=== PATIENT | female | born 1995 | race American Indian/Alaskan Native ===

== ENCOUNTER 2017-10-01 08:54 | Emergency (ER) | payer MEDICAID ==
[2017-10-01 10:11] LABS: Bacteria,Urine 2+ /HPF (Negative); Mucus,Urine FEW /HPF
[2017-10-01 10:13] LABS: Bilirubin,Urine Negative (Negative); Blood,Urine Negative (Negative); Ketones,Urine Negative (Negative); Protein,Urine <15 mg/dL mg/dL (Negative)
[2017-10-01 10:14] LABS: Leukocyte Esterase,Urine Negative (Negative); Nitrite,Urine Negative (Negative); Urobilinogen,Urine < 2.0 mg/dL (<2.0)
[2017-10-01 10:57] VITALS: BP 121/69
--- NOTE | 2017-10-01 11:20 | Emergency Department Report ---
ED Abdominal Pain HPI - General Chief Complaint: Abdominal Pain Stated Complaint: ABD PAIN Time Seen by Provider: 10/01/17 11:15 Source: patient Mode of arrival: Ambulatory Limitations: No Limitations - History of Present Illness Initial Comments: Apparently at triage the patient just complained of crampy abdominal pain for a day. However she confided that she had a retained tampon that she could be removed since Thursday. She denies any fever or chills. She denies any vaginal bleeding or substantial discharge. She is no longer complaining of abdominal pain. MD Complaint: abdominal pain -: hour(s) Location: suprapubic Radiation: none Severity: mild Severity scale (0 -10): 2 Quality: cramping Consistency: now resolved Improves With: nothing Context: other Associated Symptoms: denies other symptoms - Related Data Previous Rx's Medication Instructions Recorded Last Taken Type oxyCODONE /ACETAMINOPHEN [Percocet 1 tab PO Q6HR PRN #40 tablet 06/09/16 Unknown Rx 5/325] Ferrous Sulfate [Feosol 325 MG tab] 325 mg PO BID #60 tablet 06/11/16 Unknown Rx Ibuprofen [Motrin 800 MG tab] 800 mg PO Q6H PRN #30 tablet 06/11/16 Unknown Rx metroNIDAZOLE [Metronidazole] 500 mg PO TID #14 tablet 10/01/17 Unknown Rx Allergies Allergy/AdvReac Type Severity Reaction Status Date / Time No Known Allergies Allergy Unverified 09/23/14 13:18 ED Review of Systems ROS: Stated complaint: ABD PAIN Other details as noted in HPI Constitutional: denies: chills, fever Eyes: denies: eye pain, eye discharge, vision change ENT: denies: ear pain, throat pain Respiratory: denies: cough, shortness of breath, wheezing Cardiovascular: denies: chest pain, palpitations Endocrine: no symptoms reported Gastrointestinal: abdominal pain. denies: nausea, diarrhea Genitourinary: as per HPI. denies: urgency, dysuria, discharge Musculoskeletal: denies: back pain, joint swelling, arthralgia Skin: denies: rash, lesions Neurological: denies: headache, weakness, paresthesias Psychiatric: denies: anxiety, depression Hematological/Lymphatic: denies: easy bleeding, easy bruising ED Past Medical Hx - Past Medical History Hx Hypertension: No Hx Congestive Heart Failure: No Hx Diabetes: No Hx Deep Vein Thrombosis: No Hx Renal Disease: No Hx Sickle Cell Disease: No Hx Seizures: No Hx Asthma: No Hx COPD: No - Surgical History Additional Surgical History: c sect - Social History Smoking Status: Never Smoker Substance Use Type: None - Medications Home Medications: Home Medications Medication Instructions Recorded Confirmed Last Taken Type oxyCODONE /ACETAMINOPHEN [Percocet 1 tab PO Q6HR PRN #40 tablet 06/09/16 Unknown Rx 5/325] Ferrous Sulfate [Feosol 325 MG tab] 325 mg PO BID #60 tablet 06/11/16 Unknown Rx Ibuprofen [Motrin 800 MG tab] 800 mg PO Q6H PRN #30 tablet 06/11/16 Unknown Rx metroNIDAZOLE [Metronidazole] 500 mg PO TID #14 tablet 10/01/17 Unknown Rx ED Physical Exam - General Limitations: No Limitations General appearance: alert, in no apparent distress - Head Head exam: Present: atraumatic, normocephalic - Eye Eye exam: Present: normal appearance, PERRL, EOMI. Absent: scleral icterus - ENT ENT exam: Present: mucous membranes moist - Neck Neck exam: Present: normal inspection - Respiratory Respiratory exam: Present: normal lung sounds bilaterally. Absent: respiratory distress - Cardiovascular Cardiovascular Exam: Present: regular rate, normal rhythm. Absent: systolic murmur, diastolic murmur, rubs, gallop - GI/Abdominal GI/Abdominal exam: Present: soft, normal bowel sounds. Absent: distended, tenderness, guarding, rebound, rigid - External exam: Present: normal external exam Speculum exam: Present: other (retained foreign body (tampon and (was removed with a towel forceps without difficulty.) Bi-manual exam: Present: normal bi-manual exam - Extremities Exam Extremities exam: Present: normal inspection - Back Exam Back exam: Present: normal inspection - Neurological Exam Neurological exam: Present: alert, oriented X3, CN II-XII intact. Absent: motor sensory deficit - Psychiatric Psychiatric exam: Present: normal affect, normal mood - Skin Skin exam: Present: warm, dry, intact, normal color. Absent: rash ED Course Vital Signs 10/01/17 10/01/17 09:28 10:54 Temperature 98.3 F 98.3 F Pulse Rate 99 H 93 H Respiratory 16 10 L Rate Blood Pressure 135/78 Blood Pressure 121/69 [Right] O2 Sat by Pulse 98 100 Oximetry ED Medical Decision Making - Lab Data Laboratory Results - last 24 hr 10/01/17 10/01/17 09:39 09:41 HCG, Qual Negative Urine Color Yellow Urine Turbidity Clear Urine pH 8.0 H Ur Specific [place] 1.010 Urine Protein <15 mg/dl Urine Glucose (UA) Negative Urine Ketones Negative Urine Blood Negative Urine Nitrite Negative Ur Reducing Substances Not Reportable Urine Bilirubin Negative Urine Ictotest Not Reportable Urine Urobilinogen < 2.0 Ur Leukocyte Esterase Negative Urine WBC (Auto) 2.0 Urine RBC (Auto) 1.0 U Epithel Cells (Auto) 1.0 Urine Bacteria (Auto) 2+ Urine Mucus Few Laboratory Results - last 24 hr 10/01/17 10/01/17 09:39 09:41 HCG, Qual Negative Urine Color Yellow Urine Turbidity Clear Urine pH 8.0 H Ur Specific [place] 1.010 Urine Protein <15 mg/dl Urine Glucose (UA) Negative Urine Ketones Negative Urine Blood Negative Urine Nitrite Negative Ur Reducing Substances Not Reportable Urine Bilirubin Negative Urine Ictotest Not Reportable Urine Urobilinogen < 2.0 Ur Leukocyte Esterase Negative Urine WBC (Auto) 2.0 Urine RBC (Auto) 1.0 U Epithel Cells (Auto) 1.0 Urine Bacteria (Auto) 2+ Urine Mucus Few Critical care attestation.: If time is entered above; I have spent that time in minutes in the direct care of this critically ill patient, excluding procedure time. ED Disposition Clinical Impression: Vaginal foreign body Qualifiers: Encounter type: initial encounter Qualified Code(s): T19.2XXA - Foreign body in vulva and vagina, initial encounter Disposition: TO HOME OR SELFCARE Is pt being admited?: No Does the pt Need Aspirin: No Condition: Stable Instructions: Abdominal Pain (ED), Vaginitis (ED) Additional Instructions: Follow-up with your methods analyst. Return if any acute change or problem. Rx as directed. Prescriptions: metroNIDAZOLE [Metronidazole] 500 mg PO TID #14 tablet Referrals: PRIMARY CARE, [Primary Care Provider] - 3-5 Days Time of Disposition: 12:33
[2017-10-01 11:39] LABS: Basophils % (Auto) 0.3 % (0.0-1.8); Eosinophils % (Auto) 0.9 % (0.0-4.3); Hematocrit 37.6 % (30.3-42.9); Hemoglobin 12.4 gm/dl (10.1-14.3); Mean Corpuscular HGB Conc 33 % (30-34); Mean Corpuscular Hemoglobin 30 pg (28-32); Mean Corpuscular Volume 90 fl (79-97); Platelet Count 252 K/mm3 (140-440); Red Blood Count 4.16 M/mm3 (3.65-5.03); Red Cell Distribution Width 13.7 % (13.2-15.2); White Blood Count 10.9 K/mm3 (4.5-11.0)
[2017-10-01 12:05] LABS: Anion Gap 20 mmol/L; BUN/Creatinine Ratio 14; Blood Urea Nitrogen 7 mg/dL (7-17); Calcium 8.8 mg/dL (8.4-10.2); Carbon Dioxide 24 mmol/L (22-30); Chloride 100.7 mmol/L (98-107); Glucose 85 mg/dL (65-100); Potassium 3.8 mmol/L (3.6-5.0); Sodium 141 mmol/L (137-145)
== END 2017-10-01 12:41 | disposition home or self-care (01) ==
LOC: ED 08:54
DX: T19.2XXA Foreign body in vulva and vagina, initial encounter (principal); W45.8XXA Other foreign body or object entering through skin, initial encounter; Y93.89 Activity, other specified; Y99.8 Other external cause status; Y92.89 Other specified places as the place of occurrence of the external cause
CPT/HCPCS: 36415; 80048; 81001; 84703; 85025; 99284

== ENCOUNTER 2018-02-20 09:00 | Emergency (ER) | payer MEDICAID ==
[2018-02-20 09:10] VITALS: BP 126/69
--- NOTE | 2018-02-20 09:45 | XRay Report ---
LEFT FINGER RADIOGRAPHS INDICATION: Left index finger injury, slammed in car door. COMPARISON: None similar. FINDINGS: An AP view of the left hand with oblique and lateral projections of the index finger demonstrate intact bones and joints. Index finger volar laceration/injury about the middle phalanx and soft tissue swelling about the PIP joint possible. No radiopaque foreign body. CONCLUSION: No acute bony abnormality with left index finger soft tissue injury suspected, as described. Please correlate. Thank you for the opportunity to participate in this patient's care.
[2018-02-20] MEDS ORDERED: XYLOCAINE 2% INFILTRATI ONE (10:42)
[2018-02-20] MEDS ORDERED: MOTRIN PO ONE (10:42)
--- NOTE | 2018-02-20 10:42 | Emergency Department Report ---
- General Chief Complaint: Extremity Injury, Upper Stated Complaint: LEFT INDEX FINGER INJURY Time Seen by Provider: 02/20/18 10:15 Source: patient Mode of arrival: Ambulatory Limitations: No Limitations - History of Present Illness Initial Comments: 22-year-old female presents with laceration to left index finger between the DIP and PIP. States that last night she accidentally slammed a car door on her own finger. Tetanus vaccine up-to-date as of 2015. No other injury sustained. Visible horizontal laceration on the volar aspect of finger. Onset/Timin -: hour(s) Extremity Location: Left: Hand (index finger) Place: outdoors Patient Tetanus UTD: Yes Context: accidental Associated Symptoms: pain - Related Data Previous Rx's Medication Instructions Recorded Last Taken Type oxyCODONE /ACETAMINOPHEN [Percocet 1 tab PO Q6HR PRN #40 tablet 06/09/16 Unknown Rx 5/325] Ferrous Sulfate [Feosol 325 MG tab] 325 mg PO BID #60 tablet 06/11/16 Unknown Rx Ibuprofen [Motrin 800 MG tab] 800 mg PO Q6H PRN #30 tablet 06/11/16 Unknown Rx metroNIDAZOLE [Metronidazole] 500 mg PO TID #14 tablet 10/01/17 Unknown Rx Cephalexin [Keflex] 500 mg PO BID #14 capsule 02/20/18 Unknown Rx Ibuprofen [Motrin] 800 mg PO Q8HR PRN #20 tablet 02/20/18 Unknown Rx Allergies Allergy/AdvReac Type Severity Reaction Status Date / Time No Known Allergies Allergy Unverified 09/23/14 13:18 ED Review of Systems ROS: Stated complaint: LEFT INDEX FINGER INJURY Other details as noted in HPI Constitutional: denies: chills, fever Eyes: denies: eye pain, eye discharge, vision change ENT: denies: ear pain, throat pain Respiratory: denies: cough, shortness of breath, wheezing Cardiovascular: denies: chest pain, palpitations Endocrine: no symptoms reported Gastrointestinal: denies: abdominal pain, nausea, diarrhea Genitourinary: denies: urgency, dysuria, discharge Musculoskeletal: as per HPI. denies: back pain, joint swelling, arthralgia Skin: as per HPI. denies: rash, lesions Neurological: denies: headache, weakness, paresthesias Psychiatric: denies: anxiety, depression Hematological/Lymphatic: denies: easy bleeding, easy bruising ED Past Medical Hx - Past Medical History Previous Medical History?: No Hx Hypertension: No Hx Congestive Heart Failure: No Hx Diabetes: No Hx Deep Vein Thrombosis: No Hx Renal Disease: No Hx Sickle Cell Disease: No Hx Seizures: No Hx Asthma: No Hx COPD: No - Surgical History Past Surgical History?: Yes Additional Surgical History: c sect - Social History Smoking Status: Current Every Day Smoker Substance Use Type: Alcohol, Marijuana - Medications Home Medications: Home Medications Medication Instructions Recorded Confirmed Last Taken Type oxyCODONE /ACETAMINOPHEN [Percocet 1 tab PO Q6HR PRN #40 tablet 06/09/16 Unknown Rx 5/325] Ferrous Sulfate [Feosol 325 MG tab] 325 mg PO BID #60 tablet 06/11/16 Unknown Rx Ibuprofen [Motrin 800 MG tab] 800 mg PO Q6H PRN #30 tablet 06/11/16 Unknown Rx metroNIDAZOLE [Metronidazole] 500 mg PO TID #14 tablet 10/01/17 Unknown Rx Cephalexin [Keflex] 500 mg PO BID #14 capsule 02/20/18 Unknown Rx Ibuprofen [Motrin] 800 mg PO Q8HR PRN #20 tablet 02/20/18 Unknown Rx ED Physical Exam - General Limitations: No Limitations General appearance: alert, in no apparent distress - Head Head exam: Present: atraumatic, normocephalic - Eye Eye exam: Present: normal appearance, PERRL, EOMI - ENT ENT exam: Present: mucous membranes moist - Neck Neck exam: Present: normal inspection - Respiratory Respiratory exam: Present: normal lung sounds bilaterally. Absent: respiratory distress - Cardiovascular Cardiovascular Exam: Present: regular rate, normal rhythm. Absent: systolic murmur, diastolic murmur, rubs, gallop - GI/Abdominal GI/Abdominal exam: Present: soft, normal bowel sounds - Extremities Exam Extremities exam: Present: normal inspection - Expanded Upper Extremity Exam Left Forearm Wrist exam: Present: normal inspection, full ROM Hand L/R Front: 1 - Positive: laceration (horizontal laceration here) Neuro motor exam: Present: wrist extension intact, thumb opposition intact, thumb IP flexion intact, thumb adduction intact, fingers 2-5 abduction intact, other Neurosensory exam: Present: radial nerve intact, ulnar nerve intact, median nerve intact Vascular: Present: normal capillary refill, radial pulse, brachial pulse, ulnar pulse - Back Exam Back exam: Present: normal inspection - Neurological Exam Neurological exam: Present: alert, oriented X3 - Psychiatric Psychiatric exam: Present: normal affect, normal mood - Skin Skin exam: Present: warm, dry, intact, normal color. Absent: rash ED Course Vital Signs 02/20/18 09:07 Temperature 98.1 F Pulse Rate 74 Respiratory 18 Rate Blood Pressure 126/69 O2 Sat by Pulse 100 Oximetry - Laceration /Wound Repair Left Distal Volar Finger Wound Location: upper extremity (left distal index finger) Wound's Depth, Shape: linear Irrigated w/ Saline (ccs): 500 Wound Debrided: minimal Wound Repaired With: sutures Suture Size/Type: 4:0, nylon Number of Sutures: 3 Progress: Local anesthesia achieved using lidocaine. 3 nylon sutures placed. Good wound closure achieved. Wound irrigated with saline and iodine before closure. Covered with antibiotic ointment and Band-Aid and finger splint afterward. ED Medical Decision Making - Medical Decision Making A/P: Left index finger Laceration 1-sutures to be removed in 7 days. Range of motion left index finger intact. X -ray shows no fracture 2-tetanus updated 2015 3-Motrin when necessary, short course keflex 4- pt advised to return to the ED for any fevers chills pus drainage erythema at site of laceration Critical care attestation.: If time is entered above; I have spent that time in minutes in the direct care of this critically ill patient, excluding procedure time. ED Disposition Clinical Impression: Laceration of left index finger Qualifiers: Encounter type: initial encounter Damage to nail status: without damage Foreign body presence: without foreign body Qualified Code(s): S61.211A - Laceration without foreign body of left index finger without damage to nail, initial encounter Disposition: TO HOME OR SELFCARE Is pt being admited?: No Does the pt Need Aspirin: No Condition: Stable Instructions: Finger Laceration (ED), Suture Care (ED) Additional Instructions: Return in 7 days for suture removal Prescriptions: Cephalexin [Keflex] 500 mg PO BID #14 capsule Ibuprofen [Motrin] 800 mg PO Q8HR PRN #20 tablet PRN Reason: Pain Referrals: [facility] [Provider Group] - 3-5 Days Forms: Work/School Release Form(ED) Time of Disposition: 11:09
[2018-02-20] MEDS ORDERED: TRIPLE ANTIBIOTIC TP ONE (10:43)
== END 2018-02-20 11:19 | disposition home or self-care (01) ==
LOC: ED 09:00
DX: S61.211A Laceration without foreign body of left index finger without damage to nail, initial encounter (principal); F17.200 Nicotine dependence, unspecified, uncomplicated; F12.10 Cannabis abuse, uncomplicated; W23.0XXA Caught, crushed, jammed, or pinched between moving objects, initial encounter; Y93.89 Activity, other specified; Y99.8 Other external cause status; Y92.89 Other specified places as the place of occurrence of the external cause
CPT/HCPCS: A6250

== ENCOUNTER 2018-03-29 21:50 | Emergency (ER) | payer MEDICAID ==
[2018-03-29 22:45] VITALS: BP 132/75
[2018-03-29 23:15] LABS: Basophils % (Auto) 0.4 % (0.0-1.8); Eosinophils # (Auto) 0.2 K/mm3 (0.0-0.4); Eosinophils % (Auto) 2.2 % (0.0-4.3); Hemoglobin 12.2 gm/dl (10.1-14.3); Lymphocytes # (Auto) 2.2 K/mm3 (1.2-5.4); Lymphocytes % (Auto) 31.4 % (13.4-35.0); Mean Corpuscular HGB Conc 33 % (30-34); Mean Corpuscular Hemoglobin 30 pg (28-32); Mean Corpuscular Volume 91 fl (79-97); Monocytes # (Auto) 0.4 K/mm3 (0.0-0.8); Monocytes % (Auto) 5.3 % (0.0-7.3); Platelet Count 237 K/mm3 (140-440); Red Blood Count 4.08 M/mm3 (3.65-5.03); Red Cell Distribution Width 12.8 % (13.2-15.2)
[2018-03-29 23:40] LABS: Alanine Aminotransferase 8 units/L (7-56); Albumin 4.3 g/dL (3.9-5); BUN/Creatinine Ratio 25; Blood Urea Nitrogen 15 mg/dL (7-17); Hemolysis Index 0
[2018-03-30 03:21] LABS: Bacteria,Urine 1+ /HPF (Negative); Bilirubin,Urine NEG (Negative); Blood,Urine NEG (Negative); Color,Urine Yellow (Yellow); Mucus,Urine FEW /HPF; Protein,Urine <15 mg/dL mg/dL (Negative)
== END 2018-03-29 23:00 | disposition left against medical advice (07) ==
LOC: ED 21:50
DX: F41.9 Anxiety disorder, unspecified (principal); Z53.21 Procedure and treatment not carried out due to patient leaving prior to being seen by health care provider
CPT/HCPCS: 36415; 80053; 81001; 84703; 85025; 93005; 93010

== ENCOUNTER 2018-06-27 19:22 | Inpatient (IN) | payer MEDICAID ==
[2018-06-27] MEDS ORDERED: NACL 0.9% 1000 ML 1,000 ML IV ONE (20:11)
[2018-06-27] MEDS ORDERED: ZOFRAN IV ONE (20:46)
[2018-06-27] MEDS ORDERED: TYLENOL PO ONE (20:46)
[2018-06-27 20:49] LABS: Basophils % (Auto) 0.5 % (0.0-1.8); Eosinophils # (Auto) 0.1 K/mm3 (0.0-0.4); Eosinophils % (Auto) 1.2 % (0.0-4.3); Hematocrit 33.3 % (30.3-42.9); Hemoglobin 11.4 gm/dl (10.1-14.3); Lymphocytes # (Auto) 1.6 K/mm3 (1.2-5.4); Lymphocytes % (Auto) 23.1 % (13.4-35.0); Mean Corpuscular HGB Conc 34 % (30-34); Mean Corpuscular Hemoglobin 31 pg (28-32); Mean Corpuscular Volume 90 fl (79-97); Monocytes # (Auto) 0.5 K/mm3 (0.0-0.8); Monocytes % (Auto) 7.2 % (0.0-7.3); Platelet Count 218 K/mm3 (140-440); Red Blood Count 3.71 M/mm3 (3.65-5.03); Red Cell Distribution Width 13.6 % (13.2-15.2)
[2018-06-27 21:00] LABS: Blood Urea Nitrogen 9 mg/dL (7-17); Hemolysis Index 42
--- NOTE | 2018-06-27 21:01 | Emergency Department Report ---
ED Seizure HPI - General Chief Complaint: Seizure Stated Complaint: SEIZURE Time Seen by Provider: 06/27/18 20:38 Source: patient, EMS Mode of arrival: Stretcher Limitations: No Limitations - History of Present Illness Initial Comments: 22-year-old female with a past medical history of anxiety and currently 13 weeks presents to the hospital with seizure 3 prior to arrival. Patient states she developed shortness of breath and feeling like her chest was caving in. Her cousin states that she started hyperventilating and her body stiffened. She began shaking for about 1 minute. She had 3 seizures back to back. She reports that patient was confused afterwards and uponEMS arrival. Patient now complains of a moderate headache since seizure activity. Positive nausea. Patient had ultrasound week confirming 13 week IUP. She complains of sternal chest pain with palpation, inspiration, and movement. Patient reports first episode of a seizure 3 years ago. She states she was diagnosed with anxiety and treated with Zoloft at that time. Although she has had recurrent anxiety attack she has never had any further seizures. She is not currently on any seizure or anxiety medication. Patient states she has never seen a neurologist, had a EEG, or had full seizure workup and evaluation. - Related Data Previous Rx's Medication Instructions Recorded Last Taken Type oxyCODONE /ACETAMINOPHEN [Percocet 1 tab PO Q6HR PRN #40 tablet 06/09/16 Unknown Rx 5/325] Ferrous Sulfate [Feosol 325 MG tab] 325 mg PO BID #60 tablet 06/11/16 Unknown Rx Ibuprofen [Motrin 800 MG tab] 800 mg PO Q6H PRN #30 tablet 06/11/16 Unknown Rx metroNIDAZOLE [Metronidazole] 500 mg PO TID #14 tablet 10/01/17 Unknown Rx Cephalexin [Keflex] 500 mg PO BID #14 capsule 02/20/18 Unknown Rx Ibuprofen [Motrin] 800 mg PO Q8HR PRN #20 tablet 02/20/18 Unknown Rx Allergies Allergy/AdvReac Type Severity Reaction Status Date / Time No Known Allergies Allergy Unverified 09/23/14 13:18 ED Review of Systems ROS: Stated complaint: SEIZURE Other details as noted in HPI Comment: All other systems reviewed and negative ED Past Medical Hx - Past Medical History Hx Hypertension: No Hx Congestive Heart Failure: No Hx Diabetes: No Hx Deep Vein Thrombosis: No Hx Renal Disease: No Hx Sickle Cell Disease: No Hx Seizures: No Hx Psychiatric Treatment: Yes (Anxiety) Hx Asthma: No Hx COPD: No - Surgical History Past Surgical History?: No Additional Surgical History: c sect - Social History Smoking Status: Never Smoker Substance Use Type: None - Medications Home Medications: Home Medications Medication Instructions Recorded Confirmed Last Taken Type oxyCODONE /ACETAMINOPHEN [Percocet 1 tab PO Q6HR PRN #40 tablet 06/09/16 Unknown Rx 5/325] Ferrous Sulfate [Feosol 325 MG tab] 325 mg PO BID #60 tablet 06/11/16 Unknown Rx Ibuprofen [Motrin 800 MG tab] 800 mg PO Q6H PRN #30 tablet 06/11/16 Unknown Rx metroNIDAZOLE [Metronidazole] 500 mg PO TID #14 tablet 10/01/17 Unknown Rx Cephalexin [Keflex] 500 mg PO BID #14 capsule 02/20/18 Unknown Rx Ibuprofen [Motrin] 800 mg PO Q8HR PRN #20 tablet 02/20/18 Unknown Rx ED Physical Exam - General Limitations: No Limitations - Other Other exam information: General: No limitations, patient is alert in no acute distress Head exam: Atraumatic, normocephalic Eyes exam: Normal appearance, pupils equal reactive to light, extraocular movements intact ENT: Moist mucous membrane, normal oropharynx Neck exam: Normal inspection, full range of motion, no meningismus nontender Respiratory exam: Clear to auscultation bilateral, no wheezes, rales, crackles Cardiovascular: Normal rate and rhythm, normal heart sounds. Reproducible sternal chest wall tenderness to palpation Abdomen: Soft, nondistended, and nontender, with normal bowel sounds, no rebound, or guarding Extremity: Full range of motion normal inspection no deformity, no calf tenderness or edema Back: Normal Inspection, full range of motion, no tenderness Neurologic: Alert, oriented x3, cranial nerves intact, no motor or sensory deficit Psychiatric: normal affect, normal mood Skin: Warm, dry, intact ED Course Vital Signs 06/27/18 06/27/18 06/27/18 19:51 19:58 20:00 Temperature 98.2 F Pulse Rate 74 73 Respiratory 16 14 Rate Blood Pressure 105/51 109/58 O2 Sat by Pulse 100 100 Oximetry 06/27/18 20:15 Temperature Pulse Rate 74 Respiratory 18 Rate Blood Pressure 110/67 O2 Sat by Pulse 99 Oximetry - Consultations Consultation #1: 06/27/18 22:57 case d/w Dr Dr Conley with Neuro recommendations: Lamictal 25mg qd admission mri, eeg, neuro consult Consultation #2: 06/27/18 23:16 [facility] (tom ob) aware, consult ordered ED Medical Decision Making - Lab Data Result diagrams: 06/27/18 20:31 06/27/18 20:31 Lab Results 06/27/18 06/27/18 Range/Units 20:31 20:31 WBC 7.0 (4.5-11.0) K/mm3 RBC 3.71 (3.65-5.03) M/mm3 Hgb 11.4 (10.1-14.3) gm/dl Hct 33.3 (30.3-42.9) % MCV 90 (79-97) fl MCH 31 (28-32) pg MCHC 34 (30-34) % RDW 13.6 (13.2-15.2) % Plt Count 218 (140-440) K/mm3 Lymph % (Auto) 23.1 (13.4-35.0) % [place] % (Auto) 7.2 (0.0-7.3) % Eos % (Auto) 1.2 (0.0-4.3) % Baso % (Auto) 0.5 (0.0-1.8) % Lymph # 1.6 (1.2-5.4) K/mm3 [place] # 0.5 (0.0-0.8) K/mm3 Eos # 0.1 (0.0-0.4) K/mm3 Baso # 0.0 (0.0-0.1) K/mm3 Seg Neutrophils % 68.0 (40.0-70.0) % Seg Neutrophils # 4.8 (1.8-7.7) K/mm3 Sodium 136 L (137-145) mmol/L Potassium 3.7 (3.6-5.0) mmol/L Chloride 100.1 (98-107) mmol/L Carbon Dioxide 17 L (22-30) mmol/L Anion Gap 23 mmol/L BUN 9 (7-17) mg/dL Creatinine 0.4 L (0.7-1.2) mg/dL Estimated GFR > 60 ml/min BUN/Creatinine Ratio 23 % Glucose 70 (65-100) mg/dL Calcium 9.0 (8.4-10.2) mg/dL Magnesium 1.60 L (1.7-2.3) mg/dL Total Bilirubin 0.30 (0.1-1.2) mg/dL AST 26 (5-40) units/L ALT 34 (7-56) units/L Alkaline Phosphatase 78 (35-129) units/L Total Protein 6.9 (6.3-8.2) g/dL Albumin 3.8 L (3.9-5) g/dL Albumin/Globulin Ratio 1.2 % - EKG Data -: EKG Interpreted by Al EKG shows normal: sinus rhythm, axis (qrs 29), QRS complexes (qrsd 92), ST-T waves (no stemi, pvc) Rate: normal (75) - EKG Data When compared to previous EKG there are: previous EKG unavailable - Radiology Data Radiology results: report reviewed FINAL REPORT EXAM: CT HEAD/BRAIN WO CON HISTORY: Seizure COMPARISON: None available. TECHNIQUE: Axial images obtained skull base through vertex. FINDINGS: No acute intracranial hemorrhage, midline shift or pathologic extra axial fluid collection. Ventricles and cisterns are normal in size and configuration for the patient's age. Carranza-white differentiation preserved. Calvarium grossly intact. Visualized ocular globes are grossly unremarkable. Visualized para-nasal sinuses and mastoid air cells are clear. IMPRESSION: No grossly acute intracranial abnormality. FINAL REPORT EXAM: XR CHEST 1V AP HISTORY: sob, , mid cp COMPARISON: None available. FINDINGS: Frontal view(s) of the chest obtained. Heart upper limits of normal in size. No gross consolidation or effusion. No pneumothorax. IMPRESSION: No grossly acute findings. - Medical Decision Making sz no sz in ed cth head neg case d/w with neuro admission, lamictal, MRI, possible eeg, neuro consult cp costochondritis ekg, cxr neg normal pulse ox tylenol given hypomag IV mag 13 weeks no active issue Premire ob dr rader informed and consulted uds collection pending hospitalist to admit. - Differential Diagnosis seizures, pseudoseizures, electrolyte abnormality Critical Care Time: No Critical care attestation.: If time is entered above; I have spent that time in minutes in the direct care of this critically ill patient, excluding procedure time. ED Disposition Clinical Impression: 13 weeks gestation of , Seizure Disposition: [id number] OP ADMIT IP TO THIS HOSP Is pt being admited?: Yes Condition: Stable Time of Disposition: 23:11 (Dr Jensen/hosp)
--- NOTE | 2018-06-27 21:08 | Cat Scan Report ---
FINAL REPORT EXAM: CT HEAD/BRAIN WO CON HISTORY: Seizure COMPARISON: None available. TECHNIQUE: Axial images obtained skull base through vertex. FINDINGS: No acute intracranial hemorrhage, midline shift or pathologic extra axial fluid collection. Ventricles and cisterns are normal in size and configuration for the patient's age. Carranza-white differentiation preserved. Calvarium grossly intact. Visualized ocular globes are grossly unremarkable. Visualized para-nasal sinuses and mastoid air cells are clear. IMPRESSION: No grossly acute intracranial abnormality.
[2018-06-27 21:43] LABS: Alanine Aminotransferase 34 units/L (7-56); Albumin 3.8 g/dL (3.9-5); BUN/Creatinine Ratio 23
--- NOTE | 2018-06-27 22:37 | XRay Report ---
FINAL REPORT EXAM: XR CHEST 1V AP HISTORY: sob, , mid cp COMPARISON: None available. FINDINGS: Frontal view(s) of the chest obtained. Heart upper limits of normal in size. No gross consolidation or effusion. No pneumothorax. IMPRESSION: No grossly acute findings.
[2018-06-27] MEDS ORDERED: LaMICtal PO ONE (22:56)
[2018-06-27] MEDS ORDERED: MAGNESIUM SULFATE 2GM/50ML 2 GM/50 ML BAG IV ONE (22:56)
[2018-06-28 00:15] LABS: Bacteria,Urine 2+ /HPF (Negative); Bilirubin,Urine NEG (Negative); Blood,Urine NEG (Negative); Color,Urine Red (Yellow); Mucus,Urine FEW /HPF; Protein,Urine <15 mg/dL mg/dL (Negative)
[2018-06-28 00:21] LABS: Amphetamine Screen,Urine PRESUMPTIVE NEGATIVE; Benzodiazepines Screen,Urine PRESUMPTIVE NEGATIVE; Cannabinoid Screen,Urine PRESUMPTIVE NEGATIVE; Cocaine Screen,Urine PRESUMPTIVE NEGATIVE; Methadone Screen,Urine PRESUMPTIVE NEGATIVE; Opiate Screen,Urine PRESUMPTIVE NEGATIVE
[2018-06-28] MEDS ORDERED: ATIVAN IV PRN (00:47)
[2018-06-28] MEDS ORDERED: TYLENOL PO PRN (00:49)
[2018-06-28] MEDS ORDERED: ZOFRAN IV PRN (00:49)
--- NOTE | 2018-06-28 04:36 | History and Physical Report ---
CHIEF COMPLAINT: Seizure attack. HISTORY OF PRESENT ILLNESS: The patient is a 22-year-old female who 13-week and noted to have reaction at home described as seizure attack by the patient's family. The patient's cousin stated that the patient was hyperventilated with the body stiffened and started shaking for about 1 minute. The patient was noted to have back to back 3 episodes of such reactions and was confused afterwards an EMS was called. The patient was brought to the Emergency Room. The patient said she had what she described as attack of migraine headache prior to the seizure attack and there was also history of nausea and also there was history of chest discomfort. The patient states she had such first seizure attacking in life about 3 years ago and was diagnosed with history of anxiety disorder, which was treated with Zoloft, sometime in the past. The patient is not on any anti-seizure medications and states she has started her clinic attendance. She denied history of being evaluated by any neurologist for seizure disorder or had any workup for seizure in the past. PAST MEDICAL HISTORY: Pertinent for seizure disorder. Also, the patient has past history of anxiety disorder and migraine headache. PAST SURGICAL HISTORY: Pertinent for section. FAMILY HISTORY: Noncontributory. SOCIAL HISTORY: The patient does not smoke, does not drink alcohol and does not use illicit drugs. MEDICATIONS: The patient is on baclofen 5/325 mg 1 by mouth every 6 hours, ferrous sulfate 325 mg by mouth twice daily, ibuprofen 800 mg by mouth every 6 hours as needed for pain and metronidazole 500 mg by mouth 3 times daily as well as Keflex 500 mg by mouth twice daily. ALLERGIES: There are no known drug allergies. REVIEW OF SYSTEMS: CONSTITUTIONAL: There is no fever, no chills, no diaphoresis. HEENT: There is headache but no sore throat. CARDIOVASCULAR SYSTEM: There is chest discomfort with no orthopnea. RESPIRATORY SYSTEM: There is no shortness of breath or cough. GASTROINTESTINAL SYSTEM: There is nausea, but no vomiting, no abdominal pain, diarrhea or constipation. NEUROLOGICAL SYSTEM: Seizure attack noted. Change in mental status noted. MUSCULOSKELETAL SYSTEM: There is no joint pain or swelling. DERMATOLOGICAL SYSTEM: There is no skin rash or itching. GENITOURINARY SYSTEM: There is no dysuria, hematuria, or flank pain. Rest of system review is normal. PHYSICAL EXAMINATION: GENERAL: At the time of exam, the patient was found to be alert, oriented x 3 and not in acute distress. VITAL SIGNS: Shows temperature of 98.2 degrees Fahrenheit, pulse of 74, respiration 16, blood pressure 105/51, O2 sat of 100% on room air. HEENT: Showed pupils to be equal, round, and reactive to light and accommodating. Extraocular muscles are intact. NECK: Supple with no JVD or carotid bruit. CARDIOVASCULAR SYSTEM: Show normal first and second heart sounds with no gallops or murmurs. RESPIRATORY SYSTEM: Show good air entry on both sides of the lungs with no abnormal breath sounds. GASTROINTESTINAL SYSTEM: Show abdomen to be enlarged. NEUROLOGICAL SYSTEM: Show no focal deficit. MUSCULOSKELETAL SYSTEM: Show no joint swelling or tenderness. DERMATOLOGICAL SYSTEM: Show no skin rash. GENITOURINARY SYSTEM: Show no costovertebral angle tenderness. PERTINENT LABORATORY AND IMAGING STUDIES: The patient had CT of the head without contrast done that shows no acute intracranial abnormality, also the patient had chest x-ray done that shows no acute finding. The patient's lab results show normal CBC with chemistry showing slightly decreased sodium level of 136 with normal potassium, normal chloride and low CO2 level of 17 with low magnesium level of 1.60. The patient's albumin level was slightly low with a value of 3.8. The patient's urinalysis was unremarkable. Toxicology screen came back unremarkable. DIAGNOSES: 1. Seizure attack in . 2. Low magnesium. PLAN: 1. The patient will be admitted to medical floor on remote telemetry. 2. The patient will continue Obstetrical consult with Dr. Gerhard Tillman ordered by the Emergency Room physician. 3. The patient will have Neurology consult with Dr. Gracy Zhou this morning to decide whether to carry on the request for MRI advised by the teleneurologist and also the neurologist will determine the best anti-seizure medication. The patient to be in agreement with the club concierge about the safe medication in . 4. The patient will be on IV Zofran 4 mg every 8 hours as needed for nausea and vomiting and will be on IV lorazepam 2 mg every 2 hours as needed for seizure disorder. The patient will also be on Tylenol 650 mg by mouth every 4 hours for fever and headache. JOB# [id number] OCN/NTS
--- NOTE | 2018-06-28 13:02 | Consultation ---
History of Present Illness Consult date: 06/28/18 Requesting physician: MYA KEN Reason for Consult: seizure History of present illness: 22 year old female, 13 weeks , presented to ER with spell of shortness of breath followed by syncope and shaking with eyes rolled back. Witnessed by her cousin who provides history. There were 2 more spells like this afterwards. EMS was called, she was brought to ER and has had no further spells. She is lethargic this a.m. but answers questions appropriately. She had a seizure 3 years ago but was not evaluated for this nor placed on medication. She also carries a diagnosis of anxiety disorder. She has been on Zoloft in the past, but states that it did not help. She also complains of migraine headache constant for the past [address] is without abnormality. Past History Past Medical History: migraines Past Surgical History: Medications and Allergies Allergies Allergy/AdvReac Type Severity Reaction Status Date / Time No Known Allergies Allergy Unverified 09/23/14 13:18 Home Medications Medication Instructions Recorded Confirmed Last Taken Type No Known Home Medications [No 06/28/18 06/28/18 Unknown History Reported Home Medications] Active Meds: Active Medications Acetaminophen (Tylenol) 650 mg PO Q4H PRN PRN Reason: Fever >101 Lamotrigine (Lamictal) 25 mg PO BID ISIDORO Lorazepam (Ativan) 2 mg IV Q2H PRN PRN Reason: Seizures Ondansetron HCl (Zofran) 4 mg IV Q8H PRN PRN Reason: Nausea And Vomiting Last Admin: 06/28/18 09:02 Dose: 4 mg Review of Systems Constitutional: chronic headaches, no fever, no chills Cardiovascular: chest pain, lightheadedness, shortness of breath, no orthopnea, no palpitations, no rapid/irregular heart beat, no edema, no syncope Respiratory: shortness of breath, no cough Gastrointestinal: nausea, no abdominal pain, no vomiting, no diarrhea, no constipation Genitourinary Female: no dysuria, no urinary frequency, no urgency Musculoskeletal: no arm numbness/tingling, no leg numbness/tingling Integumentary: no rash Neurological: seizures, syncope, headaches, migraines, no parathesias, no numbness, no tingling, no ataxia, no vertigo, no aphasia Psychiatric: anxiety Physical Examination - Vital Signs Vital Signs: Vital Signs Pulse Ox 100 06/27/18 19:51 - Physical Exam Narrative exam: Resting in bed. Arousable HEENT - no inflammation or lesions. neck supple. Chest - clear to auscultation. Heart - reg. rate. nl S-1, S-2. Abdomen - soft, nontender. Extremities - no CCE Neurological - speech fluent, low voice vol. not cooperating fully with the exam. 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 Hearing intact, V-1 thru V-3 intact bilaterally Motor - symmetric Reflexes - trace throughout Sensory - intact touch and pin. Cerebellar - intact. Results - Laboratory Findings CBC and BMP: 06/27/18 20:31 06/27/18 20:31 Abnormal Lab Findings: Abnormal Labs 06/27/18 20:31 Sodium 136 L Carbon Dioxide 17 L Creatinine 0.4 L Magnesium 1.60 L Albumin 3.8 L Assessment and Plan 22 year old female, 13 weeks with hyperventilation followed by seizures. History of anxiety disorder. On no meds at present. She was given lamotrigine, which is felt to be safe in . This drug may also help with her anxiety disorder. Plan - EEG and MRI brain ordered. Continue Lamotrigine 25 mg BID. OB-Foot Cutter consult to advise us as to pain management for her migraine. What meds are acceptable in .
--- NOTE | 2018-06-28 17:09 | Progress Note ---
Assessment and Plan Acute onset seizure - placed on vimpat, as needed ativan - neurology following - CT head unremarkable headache, likely migraine - cont vimpat and as needed tylenol - will wait for obg/information clerk brokerage for further recommendation for pain meds Hypomagnesemia, repleted, monitor level 13th week of - consulted obg/information clerk brokerage DVT Px, SCD Subjective Date of service: 06/28/18 Interval history: Patient seen and examined c/o headache poorly responding to tylenol Objective - Constitutional Vitals: Vital Signs - 12hr 06/28/18 06/28/18 06/28/18 07:45 10:00 11:08 Temperature 98.3 F 98.1 F Pulse Rate 73 69 Respiratory 16 18 16 Rate Blood Pressure 95/52 103/55 O2 Sat by Pulse 97 99 Oximetry 06/28/18 06/28/18 12:00 16:02 Temperature 98.0 F Pulse Rate 71 69 Respiratory 16 Rate Blood Pressure 103/56 O2 Sat by Pulse 100 Oximetry General appearance: Present: no acute distress, well-nourished - EENT Eyes: PERRL, EOM intact ENT: hearing intact, clear oral mucosa Ears: bilateral: normal - Neck Neck: supple, normal ROM - Respiratory Respiratory effort: normal Respiratory: bilateral: CTA - Cardiovascular Rhythm: regular Heart Sounds: Present: S1 & S2. Absent: gallop, rub Extremities: pulses intact, No edema, normal color, Full ROM - Gastrointestinal General gastrointestinal: Present: soft, non-tender, non-distended, normal bowel sounds - Genitourinary Female genitourinary: deferred - Integumentary Integumentary: clear, warm, dry - Musculoskeletal Musculoskeletal: 1, strength equal bilaterally - Neurologic Neurologic: moves all extremities - Psychiatric Psychiatric: memory intact, appropriate mood/affect, intact judgment & insight - Labs CBC & Chem 7: 06/27/18 20:31 06/27/18 20:31 Labs: Abnormal lab results 06/27/18 Range/Units 20:31 Sodium 136 L (137-145) mmol/L Carbon Dioxide 17 L (22-30) mmol/L Creatinine 0.4 L (0.7-1.2) mg/dL Magnesium 1.60 L (1.7-2.3) mg/dL Albumin 3.8 L (3.9-5) g/dL
[2018-06-28] MEDS: LaMICtal PO SCH (21:04)
[2018-06-29] MEDS: LaMICtal PO SCH ×2 (11:01→21:57)
--- NOTE | 2018-06-29 13:26 | Consultation ---
History of Present Illness Consult date: 06/29/18 Reason for consult: other (seizure activity in ) History of present illness: 22y/o @ 13 weeks estimated gestational age presents to the ED with the complaint of seizure activity. The patient reports having a seizure 3-4 years ago and was given Zoloft. She has a history of anxiety. The patient reports having a persistent migraine headache that has not been resolved with over-the- counter meds. She denies any history of any seizure activity with her migraine headaches in the past. She also reports intermittent nausea likely secondary to the . The patient denies any vaginal bleeding but is experiencing occasional lower uterine cramping. She also complains of episodes of shortness of breath and wheezing. Past History Past Medical History: seizure Social history: single - Obstetrical History : 3 Para: 1 Hx # Term Pregnancies: 1 Number of Pregnancies: 0 Spontaneous Abortions: 1 Induced : 0 Number of Living Children: 1 Medications and Allergies Allergies Allergy/AdvReac Type Severity Reaction Status Date / Time No Known Allergies Allergy Unverified 09/23/14 13:18 Home Medications Medication Instructions Recorded Confirmed Last Taken Type No Known Home Medications [No 06/28/18 06/28/18 Unknown History Reported Home Medications] Active Meds: Active Medications Acetaminophen (Tylenol) 650 mg PO Q4H PRN PRN Reason: Fever >101 Last Admin: 06/29/18 11:03 Dose: 650 mg Lamotrigine (Lamictal) 25 mg PO BID ISIDORO Last Admin: 06/29/18 11:01 Dose: 25 mg Lorazepam (Ativan) 2 mg IV Q2H PRN PRN Reason: Seizures Ondansetron HCl (Zofran) 4 mg IV Q8H PRN PRN Reason: Nausea And Vomiting Last Admin: 06/28/18 09:02 Dose: 4 mg Review of Systems All systems: negative Ears, nose, mouth and throat: headache Respiratory: shortness of breath Gastrointestinal: nausea Genitourinary: pelvic pain, no vaginal bleeding - Vital Signs Vital signs: Vital Signs Pulse Ox 100 06/27/18 19:51 Temp Pulse Resp BP Pulse Ox 98.0 F 98 H 18 98/62 99 06/29/18 12:12 06/29/18 12:12 06/29/18 12:12 06/29/18 12:12 06/29/18 12:12 Results Result Diagrams: 06/27/18 20:31 06/27/18 20:31 All other labs normal. Assessment and Plan - Patient Problems (1) Seizure disorder during Current Visit: Yes Status: Acute Plan to address problem: We will obtain an obstetrical ultrasound would recommend the use of fioricet with codeine for management of headaches Keepra is a consideration for control of seizure activity patient feels albuterol inhaler would be helpful for SOB please contact me with any questions [phone] (2) Migraine headache Current Visit: Yes Status: Acute
[2018-06-29] MEDS: FIORICET PO PRN (14:54)
--- NOTE | 2018-06-29 16:24 | Progress Note ---
Assessment and Plan Acute onset seizure - placed on as needed ativan - neurology following - CT head unremarkable - EEG and MRI brain ordered. - Continue Lamotrigine 25 mg BID for seizure - safe in headache, likely migraine - started on fiorecet as needed Hypomagnesemia, repleted, monitor level 13th week of - consulted obg/outside energy sales representatives - ordered pelvic US for assessment DVT Px, SCD Subjective Date of service: 06/29/18 Interval history: Patient seen and examined c/o headache poorly responding to tylenol Objective - Exam Narrative Exam: General appearance: Present: no acute distress, well-nourished - EENT Eyes: PERRL, EOM intact ENT: hearing intact, clear oral mucosa Ears: bilateral: normal - Neck Neck: supple, normal ROM - Respiratory Respiratory effort: normal Respiratory: bilateral: CTA - Cardiovascular Rhythm: regular Heart Sounds: Present: S1 & S2. Absent: gallop, rub Extremities: pulses intact, No edema, normal color, Full ROM - Gastrointestinal General gastrointestinal: Present: soft, non-tender, non-distended, normal bowel sounds - Genitourinary Female genitourinary: deferred - Integumentary Integumentary: clear, warm, dry - Musculoskeletal Musculoskeletal: 1, strength equal bilaterally - Neurologic Neurologic: moves all extremities - Psychiatric Psychiatric: memory intact, appropriate mood/affect, intact judgment & insight - Constitutional Vitals: Vital Signs - 12hr 06/29/18 06/29/18 06/29/18 06:35 08:55 12:09 Temperature 98.6 F 98.2 F Pulse Rate 63 65 67 Respiratory 18 18 Rate Blood Pressure 101/46 Blood Pressure 95/48 [Right] O2 Sat by Pulse 97 98 Oximetry 06/29/18 12:12 Temperature 98.0 F Pulse Rate 98 H Respiratory 18 Rate Blood Pressure 98/62 Blood Pressure [Right] O2 Sat by Pulse 99 Oximetry - Labs CBC & Chem 7: 06/27/18 20:31 06/27/18 20:31
[2018-06-29 16:41] LABS: HCG Qualitative,Urine Positive (Negative)
--- NOTE | 2018-06-29 19:30 | Progress Note ---
Assessment and Plan 22 year old female, 13 weeks with hyperventilation followed by seizures. History of anxiety disorder. On no meds at present. She was given lamotrigine, which is felt to be safe in . This drug may also help with her anxiety disorder. Fioricet added for migraine control. Plan - EEG and MRI brain ordered. Continue Lamotrigine 25 mg BID. Ultrasound today to check fetus. Subjective Date of service: 06/29/18 Principal diagnosis: seizures Interval history: Feeling much better today. She has been started on Fioricet for migraine and is obtaining relief. No further seizures. Objective - Exam Narrative Exam: Awake and alert HEENT - no inflammation or lesions. neck supple. Chest - clear to auscultation. Heart - reg. rate. nl S-1, S-2. Abdomen - soft, nontender. Extremities - no CCE Neurological - speech fluent, low voice vol. not cooperating fully with the exam. coordinating producer - EOMs full, face symmetric, tongue midline. Hearing intact, V-1 thru V-3 intact bilaterally Motor - symmetric Reflexes - trace throughout Sensory - intact touch and pin. Cerebellar - intact. - Vital Sign Vital Signs - 12hr 06/29/18 06/29/18 06/29/18 08:55 12:09 12:12 Temperature 98.2 F 98.0 F Pulse Rate 65 67 98 H Respiratory 18 18 Rate Blood Pressure 101/46 98/62 O2 Sat by Pulse 98 99 Oximetry 06/29/18 17:17 Temperature 98.6 F Pulse Rate 64 Respiratory 18 Rate Blood Pressure 100/56 O2 Sat by Pulse 100 Oximetry - Laboratory Findings CBC and BMP: 06/27/18 20:31 06/27/18 20:31 Abnormal Lab Findings: Abnormal Labs 06/27/18 06/29/18 20:31 16:16 Sodium 136 L Carbon Dioxide 17 L Creatinine 0.4 L Magnesium 1.60 L Albumin 3.8 L Urine HCG, Qual Positive A
--- NOTE | 2018-06-29 23:35 | Ultrasound Report ---
FINAL REPORT PROCEDURE: Limited obstetrical ultrasound. TECHNIQUE: Real-time limited sonographic examination was performed for evaluation of size, position, heartbeat, fluid volume for each fetus with image documentation (1 or more fetuses). CPT 63398 HISTORY: , seizures. COMPARISON: No prior studies are available for comparison. FINDINGS: There is a single viable fetus in breech presentation. Cardiac activity is documented at 165 beats per minute. The cervix measures 5.2 centimeters in length. It is too early to evaluate anatomy. The amniotic fluid volume appears normal. The placenta is anterior in location with no signs of placenta previa. The measured parameters are as follows: Biparietal diameter 2.6 centimeters, head circumference 9.1 centimeters, abdominal circumference 7.9 centimeters, femur length 1.4 centimeters. The calculated menstrual age is 14 weeks 2 days. The estimated date of confinement is 12/26/2018. IMPRESSION: Single viable fetus in breech presentation with a menstrual age of 14 weeks 2 days.
[2018-06-30] MEDS: FIORICET PO PRN (08:19)
[2018-06-30] MEDS: LaMICtal PO SCH (10:20)
--- NOTE | 2018-06-30 11:49 | Progress Note ---
Assessment and Plan A: IUP at 13 wks Seizure disorder on Lamictal 25 mg PO BID, Neurology following Migraines, now on Fioricet Dyspnea Anxiety P: Continue Lamictal per Neurology recs Attempt Albuterol treatment to aid in dyspnea, may need Pulmonology consult outpatient Initiate vitamins daily Discharge per Neurology and Hospitalist recs Pt should follow up at [facility] next week once discharged Subjective - Subjective Date of service: 06/30/18 Principal diagnosis: seizures, dyspnea, IUP at 13 wks Interval history: Pt denies seizures overnight. She also denies vaginal bleeding. She does continue to report dyspnea but mentions that this is a chronic issue that she has been dealing with since high school. She has not been evaluated previously. She has established care at [facility] x 1 visit. Patient reports: new complaints Objective - Vital Signs Vital Signs: Vital Signs - 12hr 06/30/18 06/30/18 06/30/18 00:45 01:43 04:26 Temperature 98.6 F Pulse Rate 64 57 L 60 Respiratory 18 Rate Blood Pressure 90/43 93/43 Blood Pressure 96/49 [Right] O2 Sat by Pulse 96 96 96 Oximetry 06/30/18 06/30/18 06/30/18 05:34 06:00 09:03 Temperature 97.6 F 98.3 F Pulse Rate 68 83 73 Respiratory 20 18 Rate Blood Pressure 98/45 Blood Pressure 93/43 [Right] O2 Sat by Pulse 96 99 Oximetry 06/30/18 06/30/18 09:06 11:07 Temperature 98.3 F Pulse Rate 56 L 75 Respiratory 18 Rate Blood Pressure Blood Pressure 98/45 [Right] O2 Sat by Pulse 100 Oximetry - Exam Breasts: deferred Cardiovascular: Regular rate Lungs: Clear to auscultation Abdomen: Present: soft. Absent: tenderness Uterus: Present: normal Extremities: normal - Labs Labs: Abnormal Labs 06/27/18 06/29/18 20:31 16:16 Sodium 136 L Carbon Dioxide 17 L Creatinine 0.4 L Magnesium 1.60 L Albumin 3.8 L Urine HCG, Qual Positive A Laboratory Results - last 24 hr 06/29/18 16:16 Urine HCG, Qual Positive A - Results US- obstetric: report reviewed
--- NOTE | 2018-06-30 11:57 | Discharge Summary ---
Providers - Providers Date of Admission: 06/28/18 00:42 Date of discharge: 06/30/18 Attending physician: ALMA GARCIA 06/27/18 23:02 Consult to Physician [CONS] Urgent Comment: Dr. Dewey spoke with Dr. Echeverria @ [phone] Consulting Provider: MAXIMILIAN DONATO Physician Instructions: Reason For Exam: sz, 13 weeks gestation 06/28/18 06:00 Consult to Physician [CONS] Routine Comment: Consulting Provider: MANUELA DUKES Physician Instructions: Reason For Exam: SEIZURE DISORDER AND Primary care physician: REAGENT TENDER Hospitalization Condition: Stable Hospital course: Discharge diagnosis and management: Acute onset seizure - placed on as needed ativan - neurology following - CT head unremarkable - EEG brain ordered and was normal - Continue Lamotrigine 25 mg BID for seizure - safe in headache, likely migraine - started on fiorecet as needed and neurontin 100mg TID Hypomagnesemia, repleted, monitor level 13th week of - consulted obg/gynecological assistant - ordered pelvic US for assessment which showed normal viable fetus H/o asthma - nebs as needed DVT Px, SCD Physical exam: - Exam Narrative Exam: General appearance: Present: no acute distress, well-nourished - EENT Eyes: PERRL, EOM intact ENT: hearing intact, clear oral mucosa Ears: bilateral: normal - Neck Neck: supple, normal ROM - Respiratory Respiratory effort: normal Respiratory: bilateral: CTA - Cardiovascular Rhythm: regular Heart Sounds: Present: S1 & S2. Absent: gallop, rub Extremities: pulses intact, No edema, normal color, Full ROM - Gastrointestinal General gastrointestinal: Present: soft, non-tender, non-distended, normal bowel sounds - Genitourinary Female genitourinary: deferred - Integumentary Integumentary: clear, warm, dry - Musculoskeletal Musculoskeletal: 1, strength equal bilaterally - Neurologic Neurologic: moves all extremities - Psychiatric Psychiatric: memory intact, appropriate mood/affect, intact judgment & insight Disposition: DC-01 TO HOME OR SELFCARE Time spent for discharge: 34 minutes Core Measure Documentation - Palliative Care Palliative Care/ Comfort Measures: Not Applicable - Core Measures Any of the following diagnoses?: none Exam - Constitutional Vitals: Temp Pulse Resp BP Pulse Ox 98.3 F 75 18 98/45 100 06/30/18 09:06 06/30/18 11:07 06/30/18 09:06 06/30/18 09:06 06/30/18 09:06 Plan Activity: advance as tolerated Weight Bearing Status: Non-Weight Bearing Diet: regular Follow up with: PRIMARY CARE,MD [Primary Care Provider] - 7 Days Forms: Discharge Signature Page Prescriptions: ALBUTEROL Inhaler (OR & NICU) [Proair] 2 puff IH QID PRN 30 Days inhalation PRN Reason: Shortness Of Breath Butalb/Acetamin/Caff 50-325-40 [Fioricet] 2 tab PO Q4H PRN #10 tablet PRN Reason: Headache Gabapentin [Neurontin] 100 mg PO Q8HR #90 capsule lamoTRIgine [LaMICtal] 25 mg PO BID #60 tablet
[2018-06-30] MEDS ORDERED: PRENATAL VITAMIN PO ONE (14:00)
[2018-06-30] MEDS ORDERED: PROVENTIL IH SCH (14:00)
--- NOTE | 2018-06-30 15:19 | Progress Note ---
Assessment and Plan 22 year old female, 13 weeks with hyperventilation followed by seizures. History of anxiety disorder. She was given lamotrigine, which is felt to be safe in . This drug may also help with her anxiety disorder. Fioricet added for migraine control, but still having headache pain. Discussed the use of Neurontin with Dr. Echeverria and she agrees that it can be used safely. EEG was without abnormality Plan - Neurontin 100 mg TID Continue Lamotrigine 25 mg BID. Follow-up with a neurologist in one month Subjective Principal diagnosis: seizures, dyspnea, IUP at 13 wks Interval history: 22 year old female with migraine headache, 13 weeks , presented with seizure She has been started on Fioricet for migraine and is obtaining some relief. No further seizures. Today she has noted recurrence of headache, not as bad as before. She gets some relief from Fioricet. Objective - Exam Narrative Exam: Awake and alert HEENT - no inflammation or lesions. neck supple. Chest - clear to auscultation. Heart - reg. rate. nl S-1, S-2. Abdomen - soft, nontender. Extremities - no CCE Neurological - speech fluent, low voice vol. not cooperating fully with the exam. 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 Hearing intact, V-1 thru V-3 intact bilaterally Motor - symmetric Reflexes - trace throughout Sensory - intact touch and pin. Cerebellar - intact. - Vital Sign Vital Signs - 12hr 06/30/18 06/30/18 06/30/18 04:26 05:34 06:00 Temperature 97.6 F Pulse Rate 60 68 83 Respiratory 20 Rate Blood Pressure 93/43 Blood Pressure 93/43 [Right] O2 Sat by Pulse 96 96 Oximetry 06/30/18 06/30/18 06/30/18 09:03 09:06 11:07 Temperature 98.3 F 98.3 F Pulse Rate 73 56 L 75 Respiratory 18 18 Rate Blood Pressure 98/45 Blood Pressure 98/45 [Right] O2 Sat by Pulse 99 100 Oximetry 06/30/18 12:11 Temperature 98.2 F Pulse Rate 68 Respiratory 18 Rate Blood Pressure 91/49 Blood Pressure [Right] O2 Sat by Pulse 98 Oximetry - Laboratory Findings CBC and BMP: 06/27/18 20:31 06/27/18 20:31 Abnormal Lab Findings: Abnormal Labs 06/27/18 06/29/18 20:31 16:16 Sodium 136 L Carbon Dioxide 17 L Creatinine 0.4 L Magnesium 1.60 L Albumin 3.8 L Urine HCG, Qual Positive A
[2018-06-30 15:59] VITALS: BP 95/45
[2018-06-30] MEDS ORDERED: NEURONTIN PO SCH (16:00)
== END 2018-06-30 20:00 | disposition home or self-care (01) | DRG 781 ==
LOC: ED 19:22 → 4A 06-28 00:42
PROVIDERS: ADMIT Internal Medicine; ATTEND Internal Medicine
DX: O99.351 Diseases of the nervous system complicating pregnancy, first trimester (principal); O99.341 Other mental disorders complicating pregnancy, first trimester; Z3A.13 13 weeks gestation of pregnancy; E83.42 Hypomagnesemia; F41.9 Anxiety disorder, unspecified; G43.909 Migraine, unspecified, not intractable, without status migrainosus; R06.4 Hyperventilation; O99.511 Diseases of the respiratory system complicating pregnancy, first trimester; O99.281 Endocrine, nutritional and metabolic diseases complicating pregnancy, first trimester; G40.909 Epilepsy, unspecified, not intractable, without status epilepticus; J45.909 Unspecified asthma, uncomplicated
CPT/HCPCS: 36415; 70450; 71045; 76805; 80053; 80307; 81001; 81025; 83735; 85025; 93005; 93010; 95819; 96361; 96365; 96375; J2405; J3475; J7030

== ENCOUNTER 2018-12-20 09:00 | Outpatient (CLI) | payer MEDICAID, SELFPAY ==
--- NOTE | 2018-12-20 07:46 | History and Physical Report ---
History of Present Illness Date of examination: 12/20/18 Date of admission: 12/20/18 Chief complaint: scheduled repeat csec History of present illness: 23 yo at 39 weeks here for repeat csec. Hx of fibroids. Chronic anemia. GBS neg. Unremarkable hospital course Past History Past Medical History: no pertinent history Past Surgical History: section Family/Genetic History: none Social history: single, smoking, alcohol abuse, prescription drug abuse - Obstetrical History Expected Date of Delivery: 12/26/18 Actual Gestation: 39 Week(s) 1 Day(s) : 3 Para: 1 Hx # Term Pregnancies: 1 Number of Pregnancies: 0 Spontaneous Abortions: 0 Induced : 1 Number of Living Children: 1 Medications and Allergies Allergies Allergy/AdvReac Type Severity Reaction Status Date / Time No Known Allergies Allergy Unverified 09/23/14 13:18 Home Medications Medication Instructions Recorded Confirmed Last Taken Type ALBUTEROL Inhaler (OR & NICU) 2 puff IH QID PRN 30 Days 06/30/18 Unknown Rx [Proair] inhalation Butalb/Acetamin/Caff 50-325-40 2 tab PO Q4H PRN #10 tablet 06/30/18 Unknown Rx [Fioricet] Gabapentin [Neurontin] 100 mg PO Q8HR #90 capsule 06/30/18 Unknown Rx lamoTRIgine [LaMICtal] 25 mg PO BID #60 tablet 06/30/18 Unknown Rx Review of Systems All systems: negative - Physical Exam Breasts: Positive: normal Cardiovascular: Regular rate, Normal S1 Lungs: Positive: Clear to auscultation, Normal air movement Abdomen: Positive: normal appearance, soft, normal bowel sounds. Negative: distention, tenderness, guarding Genitourinary (Female): Positive: normal external genitalia, normal perenium Vulva: both: normal Vagina: Positive: normal moisture Uterus: Positive: normal size, normal contour Anus/Rectum: Positive: normal perianal skin Extremities: Positive: normal Deep Tendon Reflex Grade: Normal +2 - Obstetrical FHR: category 1 Results All other labs normal. Assessment and Plan A/PIUP 39 weeks scheduled repeat csec consents signed r/b/a which include bleeding infection damage to pelvic and non pelvic organs, anethesia, blood clots, hysterectomy and and patient agrees with proceeding to repeat csec
[~2018-12-20 09:00] MED LIST: LACTATED RINGERS 1,000 ML IV SCH
[2018-12-20] MEDS ORDERED: PEPCID IV NR (10:00)
[2018-12-20] MEDS ORDERED: PITOCin/NS 20 UNIT/1000ML DRIP 20 UNITS/1,000 ML BAG IV SCH (10:00)
[2018-12-20] MEDS ORDERED: BICITRA PO NR (10:00)
[2018-12-20] MEDS ORDERED: REGLAN IV NR (10:00)
--- NOTE | 2018-12-20 10:12 | Anesthesia Consultation ---
Anesthesia Consult and Med Hx - Airway Anesthetic Teeth Evaluation: Good ROM Head & Neck: Adequate Mental/Hyoid Distance: Adequate Mallampati Class: Class II Intubation Access Assessment: Probably Good - Pulmonary Exam CTA: Yes - Cardiac Exam Cardiac Exam: RRR - Pre-Operative Health Status ASA Pre-Surgery Classification: ASA2 Proposed Anesthetic Plan: Spinal - Pulmonary Hx Smoking: Yes Hx Asthma: No Hx Respiratory Symptoms: No SOB: No COPD: No Home Oxygen Therapy: No Hx Pneumonia: No Hx Sleep Apnea: No - Cardiovascular System Hx Hypertension: No Hx Coronary Artery Disease: No Hx Heart Attack/AMI: No Hx Angina: No Hx Percutaneous Transluminal Coronary Angioplasty (PTCA): No Hx Cardia Arrhythmia: No Hx Pacemaker: No Hx Internal Defibrillator: No Hx Valvular Heart Disease: No Hx Heart Murmur: No Hx Peripheral Vascular Disease: No - Central Nervous System Hx Neuromuscular Disorder: No Hx Seizures: Yes CVA: No Hx Back Pain: No Hx Psychiatric Problems: No - Gastrointestinal Hx Ulcer: No Hx Gastroesophageal Reflux Disease: No - Endocrine Hx Renal Disease: No Hx End Stage Renal Disease: No Hx Cirrhosis: No Hx Liver Disease: No Hx Insulin Dependent Diabetes: No Hx Non-Insulin Dependent Diabetes: No Hx Thyroid Disease: No Hx Hypothyroidism: No Hx Hyperthyroidism: No - Hematic Hx Anemia: No Hx Sickle Cell Disease: No - Other Systems Hx Alcohol Use: No Hx Substance Use: No Hx Cancer: No Hx Obesity: No
--- NOTE | 2018-12-20 10:13 | Anesthesia Day of Surgery ---
Anesthesia Day of Surgery - Day of Surgery Patient Examined: Yes Patient H&P Reviewed: Yes Patient is NPO: Yes Beta Blockers: No Cardiac Clearance: No Pulmonary Clearance: No Zaki's Test: N/A
[2018-12-20] MEDS ORDERED: ZOFRAN IV PRN (10:30)
[2018-12-20] MEDS ORDERED: NARCAN 0.4 MG/1 ML IV PRN (10:30)
[2018-12-20] MEDS ORDERED: PHENERGAN PR PRN (10:30)
[2018-12-20] MEDS ORDERED: SODIUM CHLORIDE FLUSH SYRINGE 10 ML IV PRN (11:00)
[2018-12-20] MEDS ORDERED: PHENERGAN PO PRN (11:00)
[2018-12-20] MEDS ORDERED: fentaNYL-BUPIV 2 MCG/ML-0.125% 200 MCG/100 ML BAG EPIDURAL SCH (11:00)
[2018-12-20] MEDS ORDERED: NACL 0.9% 500 ML 500 ML IV NR (11:26)
[2018-12-20 11:46] VITALS: BP 118/58
[2018-12-20 11:51] LABS: Basophils % (Auto) 0.6 % (0.0-1.8); Eosinophils % (Auto) 0.3 % (0.0-4.3); Hematocrit 32.9 % (30.3-42.9); Hemoglobin 11.1 gm/dl (10.1-14.3); Lymphocytes # (Auto) 1.3 K/mm3 (1.2-5.4); Mean Corpuscular HGB Conc 34 % (30-34); Mean Corpuscular Volume 90 fl (79-97); Monocytes # (Auto) 0.4 K/mm3 (0.0-0.8); Monocytes % (Auto) 6.7 % (0.0-7.3); Platelet Count 143 K/mm3 (140-440); Red Blood Count 3.64 M/mm3 (3.65-5.03); Red Cell Distribution Width 17.7 % (13.2-15.2)
== END 2018-12-20 13:02 | disposition home or self-care (01) ==
LOC: TRG 09:00 → UNDOADMOB 09:55 → APU 09:55 → INTOOBSV 09:55 → EDSTATUS 11:30 → TRG 13:02 → UNDODISOB 13:02
PROVIDERS: ATTEND Obstetrics & Gynecology
DX: O99.013 Anemia complicating pregnancy, third trimester (principal); D64.9 Anemia, unspecified; O99.333 Smoking (tobacco) complicating pregnancy, third trimester; F17.200 Nicotine dependence, unspecified, uncomplicated; Z3A.39 39 weeks gestation of pregnancy
CPT/HCPCS: 36415; 59025; 85025; 86850; 86900; 86901; 86920; J7120; 96360; G0378; G0379

== ENCOUNTER 2018-12-22 08:44 | Inpatient (IN) | payer MEDICAID ==
[2018-12-22] MEDS ORDERED: LACTATED RINGERS 1,000 ML ONE (08:50)
[2018-12-22] MEDS ORDERED: LACTATED RINGERS 2,000 ML ONE (09:33)
[2018-12-22] MEDS ORDERED: LACTATED RINGERS 1,000 ML IV SCH ×2 (10:00)
[2018-12-22 10:02] LABS: Basophils % (Auto) 0.2 % (0.0-1.8); Eosinophils % (Auto) 0.3 % (0.0-4.3); Hematocrit 35.2 % (30.3-42.9); Lymphocytes # (Auto) 1.8 K/mm3 (1.2-5.4); Lymphocytes % (Auto) 28.1 % (13.4-35.0); Mean Corpuscular HGB Conc 34 % (30-34); Mean Corpuscular Volume 89 fl (79-97); Monocytes # (Auto) 0.4 K/mm3 (0.0-0.8); Platelet Count 146 K/mm3 (140-440); Red Blood Count 3.94 M/mm3 (3.65-5.03); Red Cell Distribution Width 17.8 % (13.2-15.2)
[2018-12-22] MEDS ORDERED: REGLAN IV NR ×2 (10:30→11:30)
[2018-12-22] MEDS ORDERED: PITOCin/NS 20 UNIT/1000ML DRIP 20 UNITS/1,000 ML BAG IV SCH ×2 (10:30→14:00)
[2018-12-22] MEDS ORDERED: PEPCID IV NR (10:30)
[2018-12-22] MEDS ORDERED: STADOL IV PRN (10:30)
[2018-12-22] MEDS ORDERED: BICITRA PO NR (10:30)
--- NOTE | 2018-12-22 10:54 | Anesthesia Consultation ---
Anesthesia Consult and Med Hx Date of service: 12/22/18 - Airway Anesthetic Teeth Evaluation: Good ROM Head & Neck: Adequate Mental/Hyoid Distance: Adequate Mallampati Class: Class II Intubation Access Assessment: Probably Good - Pulmonary Exam CTA: Yes - Cardiac Exam Cardiac Exam: RRR - Pre-Operative Health Status ASA Pre-Surgery Classification: ASA2 Proposed Anesthetic Plan: Spinal - Pulmonary Hx Smoking: Yes Hx Asthma: No Hx Respiratory Symptoms: No SOB: No COPD: No Hx Pneumonia: No Hx Sleep Apnea: No - Cardiovascular System Hx Hypertension: No Hx Coronary Artery Disease: No Hx Heart Attack/AMI: No Hx Angina: No Hx Percutaneous Transluminal Coronary Angioplasty (PTCA): No Hx Cardia Arrhythmia: No Hx Pacemaker: No Hx Internal Defibrillator: No Hx Valvular Heart Disease: No Hx Heart Murmur: No Hx Peripheral Vascular Disease: No - Central Nervous System Hx Neuromuscular Disorder: No Hx Seizures: Yes (2014) CVA: No Hx Back Pain: No Hx Psychiatric Problems: No - Gastrointestinal Hx Ulcer: No Hx Gastroesophageal Reflux Disease: No - Endocrine Hx Renal Disease: No Hx End Stage Renal Disease: No Hx Cirrhosis: No Hx Liver Disease: No Hx Insulin Dependent Diabetes: No Hx Non-Insulin Dependent Diabetes: No Hx Thyroid Disease: No Hx Hypothyroidism: No Hx Hyperthyroidism: No - Hematic Hx Anemia: No Hx Sickle Cell Disease: No - Other Systems Hx Alcohol Use: No Hx Substance Use: No Hx Cancer: No Hx Obesity: No
[2018-12-22] MEDS ORDERED: SODIUM CHLORIDE FLUSH SYRINGE 10 ML IV PRN (11:00)
--- NOTE | 2018-12-22 11:02 | Anesthesia Day of Surgery ---
Anesthesia Day of Surgery - Day of Surgery Patient Examined: Yes Patient H&P Reviewed: Yes Patient is NPO: Yes Beta Blockers: No Cardiac Clearance: No Pulmonary Clearance: No Zaki's Test: N/A
[2018-12-22] MEDS ORDERED: PHENERGAN PO PRN (11:30)
[2018-12-22] MEDS ORDERED: ZOFRAN IV PRN (11:30)
[2018-12-22] MEDS ORDERED: NARCAN 0.4 MG/1 ML IV PRN ×2 (11:30→13:01)
[2018-12-22] MEDS ORDERED: NACL 0.9% 500 ML 500 ML IV NR (11:30)
[2018-12-22] MEDS ORDERED: PHENERGAN PR PRN ×2 (11:30→13:01)
[2018-12-22] MEDS ORDERED: ceFAZolin 2 GM in NACL 0.9% 100 ML IV ONE (11:55)
[2018-12-22] MEDS ORDERED: SUBLIMAZE ONE (11:58)
[2018-12-22] MEDS ORDERED: NACL 0.9% IR ONE (12:00)
[2018-12-22] MEDS ORDERED: WATER FOR IRRIG STERILE IR ONE (12:00)
[2018-12-22] MEDS ORDERED: NEO SYNEPHRINE/NS Syringe(OR USE) IV ONE (12:58)
[2018-12-22] MEDS ORDERED: ANCEF/STERILE WATER 2 GM/20 ML 2 GM/20 ML SYRINGE IV SCH (13:00)
[2018-12-22] MEDS ORDERED: MYLICON PO PRN (13:01)
[2018-12-22] MEDS ORDERED: MILK OF MAGNESIA PO PRN (13:01)
[2018-12-22] MEDS ORDERED: NORCO 5/325 PO PRN (13:01)
[2018-12-22] MEDS ORDERED: IBUPROFEN PO PRN (13:01)
[2018-12-22] MEDS ORDERED: TYLENOL PR PRN (13:01)
[2018-12-22] MEDS ORDERED: MORPHINE IV PRN (13:01)
[2018-12-22] MEDS ORDERED: TUCKS PAD TP PRN (13:01)
[2018-12-22] MEDS ORDERED: ANUCORT-HC PR PRN (13:01)
[2018-12-22] MEDS ORDERED: LANSINOH TP PRN (13:01)
[2018-12-22] MEDS ORDERED: SENOKOT PO PRN (13:01)
--- NOTE | 2018-12-22 13:10 | History and Physical Report ---
History of Present Illness Date of examination: 12/22/18 Date of admission: 12/22/18 08:44 Chief complaint: scheduled repeat History of present illness: 23 yo at 30=3 weeks here for scheduled csec. Patient hx of Premier. Unremarkable hospital course Past History Past Medical History: no pertinent history Past Surgical History: section, myomectomy Family/Genetic History: none Social history: . denies: smoking, alcohol abuse, prescription drug abuse - Obstetrical History Expected Date of Delivery: 12/26/18 Actual Gestation: 39 Week(s) 3 Day(s) : 3 Para: 1 Hx # Term Pregnancies: 1 Number of Pregnancies: 0 Spontaneous Abortions: 1 Induced : 0 Number of Living Children: 1 Medications and Allergies Allergies Allergy/AdvReac Type Severity Reaction Status Date / Time No Known Allergies Allergy Unverified 09/23/14 13:18 Home Medications Medication Instructions Recorded Confirmed Last Taken Type ALBUTEROL Inhaler (OR & NICU) 2 puff IH QID PRN 30 Days 06/30/18 Unknown Rx [Proair] inhalation Butalb/Acetamin/Caff 50-325-40 2 tab PO Q4H PRN #10 tablet 06/30/18 Unknown Rx [Fioricet] Gabapentin [Neurontin] 100 mg PO Q8HR #90 capsule 06/30/18 Unknown Rx lamoTRIgine [LaMICtal] 25 mg PO BID #60 tablet 06/30/18 Unknown Rx Active Meds: Active Medications Butorphanol Tartrate (Stadol) 2 mg IV Q1H PRN PRN Reason: Labor Pain Last Admin: 12/22/18 10:26 Dose: 2 mg Documented by: Citric Acid/Sodium Citrate (Bicitra) 30 ml PO ONCE NR Stop: 12/22/18 17:00 Last Admin: 12/22/18 11:51 Dose: 30 ml Documented by: Famotidine (Pepcid) 20 mg IV ONCE NR Stop: 12/22/18 17:00 Last Admin: 12/22/18 11:51 Dose: 20 mg Documented by: Lactated Ringer's (Lactated Ringers) 1,000 mls @ 2,250 mls/hr IV PREOP ISIDORO Stop: 12/23/18 10:27 Last Admin: 12/22/18 10:25 Dose: 2,250 mls/hr Documented by: Oxytocin/Sodium Chloride (Pitocin/Ns 20 Unit/1000ml Drip) 20 units in 1,000 mls @ 0 mls/hr IV TITR ISIDORO Sodium Chloride (Nacl 0.9% 500 Ml) 500 mls @ 0 mls/hr IV ONCE NR Stop: 12/22/18 18:00 Cefazolin Sodium (Ancef/Sterile Water 2 Gm/20 Ml) 2 gm in 20 mls @ 80 mls/hr IV PREOP ISIDORO Stop: 12/22/18 23:59 Metoclopramide HCl (Reglan) 10 mg IV ONCE NR Stop: 12/22/18 17:00 Last Admin: 12/22/18 11:52 Dose: 10 mg Documented by: Metoclopramide HCl (Reglan) 10 mg IV ONCE NR Stop: 12/22/18 17:00 Naloxone HCl (Narcan 0.4 Mg/1 Ml) 0.2 mg IV Q2MIN PRN PRN Reason: Res Rate </= 8 or 02 SAT < 92% Ondansetron HCl (Zofran) 4 mg IV Q8H PRN PRN Reason: Nausea And Vomiting Promethazine HCl (Phenergan) 25 mg PO Q6H PRN PRN Reason: Nausea And Vomiting Promethazine HCl (Phenergan) 25 mg VA Q6H PRN PRN Reason: Nausea And Vomiting Sodium Chloride (Sodium Chloride Flush Syringe 10 Ml) 10 ml IV PRN PRN PRN Reason: flush Review of Systems All systems: negative - Vital Signs Vital signs: Vital Signs Temp Resp 98.2 F 22 12/22/18 09:30 12/22/18 09:30 Temp Pulse Resp BP Pulse Ox 98.2 F 18 12/22/18 09:30 12/22/18 10:26 - Physical Exam Breasts: Positive: normal Cardiovascular: Regular rate, Normal S1 Lungs: Positive: Clear to auscultation, Normal air movement Abdomen: Positive: normal appearance, soft, normal bowel sounds. Negative: distention, tenderness, guarding Genitourinary (Female): Positive: normal external genitalia, normal perenium Vagina: Positive: normal moisture Uterus: Positive: normal size, normal contour Anus/Rectum: Positive: normal perianal skin Extremities: Positive: normal Deep Tendon Reflex Grade: Normal +2 - Obstetrical FHR: category 1 Results Result Diagrams: 12/22/18 09:25 Abnormal lab results 12/22/18 12/22/18 Range/Units 09:25 09:25 RDW 17.8 H (13.2-15.2) % Crossmatch See Detail All other labs normal. Assessment and Plan A/p IUP 39+3 weeks scheduled [place] [facility] [place] proceed with repeat
--- NOTE | 2018-12-22 13:12 | Procedure Note ---
OB Delivery Note - Delivery Date of Delivery: 12/22/18 Surgeon: TIFFANY SANDS Estimated blood loss: other (650 cc) - Section Preop diagnosis: repeat Postop diagnosis: same section procedure: section Disposition: PACU Complications: none Narrative: see op note - Infant A at 1 minute: 8 at 5 minutes: 9 Gender: Female (5 pound 15 oz)
--- NOTE | 2018-12-22 13:15 | Operative Report ---
Operative Report Operative Report: PREOPERATIVE DIAGNOSES: 1. Intrauterine at 39+3 weeks. 2. History of previous section x1. The patient desires a repeat section. POSTOPERATIVE DIAGNOSES: 1. Intrauterine at 39 weeks. 2. History of previous section x2. The patient desires a repeat section. PROCEDURE PERFORMED: Repeat section ANESTHESIA: Spinal. ESTIMATED BLOOD LOSS: 650 mL. COMPLICATIONS: None. FINDINGS: Female in cephalic presentation with anteflexed head, Apgars 8 an9. 5 pounds 10 ounces weight . Normal uterus, tubes, and ovaries were noted. INDICATIONS: The patient is a 23-year-old 3, para 1 female, who presented to repeat section at term. The patient has a history of 1 previous sections and she desires a repeat section. The procedure was described to the patient in detail including possible risks of bleeding, infection, injury to surrounding organs, and the possible need for further surgery and informed consent was obtained. PROCEDURE NOTE: The patient was taken to the operating room where spinal anesthesia was administered without difficulty. The patient was prepped and draped in the usual sterile fashion in the dorsal supine position with a leftward tilt. A Pfannenstiel skin incision was made with the scalpel and carried through to the underlying layer of fascia using the Bovie. The fascia was incised in the midline and extended laterally using Coffey scissors. Mandy clamps were used to elevate the superior aspect of the fascial incision, which was elevated, and the underlying rectus muscles were dissected off bluntly and using Coffey scissors. Attention was then turned to the inferior aspect of the fascial incision, which in similar fashion was grasped with Mandy clamps, elevated, and the underlying rectus muscles were dissected off bluntly and using the Bovie. The rectus muscles were dissected in the midline. The peritoneum was identified and entered using Metzenbaum scissors; this incision was extended superiorly and inferiorly with good visualization of the bladder. The bladder blade was inserted. The vesicouterine peritoneum was identified and entered sharply using Metzenbaum scissors. This incision was extended laterally and the bladder flap was created digitally. The bladder blade was reinserted. The lower uterine segment was incised in a transverse fashion using the scalpel and extended using bandage scissors as well as manual traction. Clear fluid was noted. The was subsequently delivered using a Teresa vacuum due to anteflexed head and difficulty in delivering the infant's head without the Teresa. The nose and mouth were bulb suctioned. The cord was clamped and cut. The infant was subsequently handed to the awaiting nursery nurse. The placenta was delivered spontaneously intact with a three-vessel cord noted. The uterus was exteriorized and cleared of all clots and debris. The uterine incision was repaired in 2 layers using 0 vicryl sutures. Hemostasis was visualized. The uterus was returned to the abdomen, both fallopian tubes were visualized and were noted to be hemostatic. The uterine incision was reexamined and it was noted to be hemostatic. The pelvis was copiously irrigatedl. The fascia was closed with 0 PDS suture, The subcutaneous layer was closed with 3-0 plain gut, and the skin was closed with Alfonso needle. Sponge, lap, and instrument counts were correct x2. The patient was stable at the completion of the procedure and was subsequently transferred to the recovery room in stable condition.
[2018-12-22] MEDS ORDERED: SODIUM CHLORIDE FLUSH SYRINGE 10 ML IV NR (14:00)
[2018-12-22] MEDS: TORADOL IV PRN ×2 (15:41→21:20)
[2018-12-22 17:03] LABS: Basophils % (Auto) 0.3 % (0.0-1.8); Hematocrit 36.2 % (30.3-42.9); Lymphocytes # (Auto) 1.2 K/mm3 (1.2-5.4); Lymphocytes % (Auto) 11.1 % (13.4-35.0); Mean Corpuscular HGB Conc 33 % (30-34); Mean Corpuscular Volume 91 fl (79-97); Monocytes # (Auto) 0.3 K/mm3 (0.0-0.8); Monocytes % (Auto) 3.2 % (0.0-7.3); Platelet Count 144 K/mm3 (140-440); Red Blood Count 3.98 M/mm3 (3.65-5.03)
--- NOTE | 2018-12-22 20:02 | Post Anesthesia Evaluation ---
- Post Anesthesia Evaluation Patient Participated: Yes Airway Patent: Yes Stable Respiratory Function: Yes Nausea/Vomiting: No Temp > 96.8F: Yes Pain Manageable: Yes Adequeate Hydration: Yes Anesthesia Complications: No Block Receding Appropriately: Yes Patient on Ventilator: No
[2018-12-22] MEDS: D5LR 1,000 ML IV SCH (20:52)
[2018-12-23 01:44] LABS: Hemoglobin 10.8 gm/dl (10.1-14.3)
[2018-12-23] MEDS: TORADOL IV PRN (02:39)
[2018-12-23] MEDS ORDERED: BOOSTRIX IM ONE (06:00)
[2018-12-23] MEDS ORDERED: M-M-R II VACCINE SUB-Q ONE (06:00)
[2018-12-23 06:35] LABS: Alanine Aminotransferase 8 units/L (7-56); Albumin 2.7 g/dL (3.9-5); BUN/Creatinine Ratio 8; Blood Urea Nitrogen 4 mg/dL (7-17); Calcium 8.2 mg/dL (8.4-10.2); Hemolysis Index 5
--- NOTE | 2018-12-23 08:58 | Progress Note ---
Assessment and Plan A/p PPD #1 s/p repeat csec IM consult for abn ekg, abnormal pulse recommneded cardiology consult with possible echo continue routine post op care Subjective - Subjective Date of service: 12/23/18 Principal diagnosis: repeat csec Interval history: 23 yo at 30=3 weeks here for scheduled csec. Patient hx of Premier. Unremarkable hospital course Patient reports: appetite normal, voiding normally, pain well controlled, flatus, ambulating normally [place]: doing well Objective - Vital Signs Latest vital signs: Vital Signs Temp Pulse Resp BP BP BP Pulse Ox 12/23/18 06:36 67 98 12/23/18 06:16 64 97 12/23/18 05:50 56 L 96 12/23/18 05:15 64 97 12/23/18 04:36 98.3 F 74 18 82/47 12/23/18 00:00 98.6 F 40 L 20 98/59 97 12/22/18 20:10 98.2 F 62 20 106/68 98 12/22/18 16:10 97.7 F 12/22/18 15:34 53 L 18 97 12/22/18 15:31 123/77 12/22/18 15:27 18 12/22/18 14:10 98 F 54 L 20 110/75 100 12/22/18 14:05 68 22 116/80 100 12/22/18 13:50 57 L 20 122/81 100 12/22/18 13:35 61 20 118/73 100 12/22/18 13:19 97.6 F 65 20 115/72 99 12/22/18 13:15 94 H 20 115/72 99 12/22/18 13:09 108 H 20 124/74 99 12/22/18 10:26 18 12/22/18 09:30 98.2 F 22 Intake and Output 12/22/18 12/23/18 12/23/18 23:59 07:59 15:59 Output Total 1300 Balance -1300 Output: Urine 1300 Indwelling Catheter 900 Void 400 Other: Total, Output Amount 400 - Exam Breasts: Present: normal Cardiovascular: Present: Regular rate, Normal S1 Lungs: Present: Clear to auscultation, Normal air movement Abdomen: Present: normal appearance, soft, normal bowel sounds. Absent: distention, tenderness, guarding Vulva: both: normal Uterus: Present: normal, firm, fundal height below umbilicus. Absent: bogginess, tenderness Extremities: Present: normal Deep Tendon Reflex Grade: Normal +2 Incision: Present: normal, dry, intact - Labs Labs: Abnormal lab results 12/22/18 12/22/18 12/22/18 Range/Units 09:25 09:25 16:25 RDW 17.8 H 18.0 H (13.2-15.2) % Lymph % (Auto) 11.1 L (13.4-35.0) % Seg Neutrophils % 85.4 H (40.0-70.0) % Seg Neutrophils # 8.9 H (1.8-7.7) K/mm3 BUN (7-17) mg/dL Creatinine (0.7-1.2) mg/dL Calcium (8.4-10.2) mg/dL Alkaline Phosphatase (35-129) units/L Total Protein (6.3-8.2) g/dL Albumin (3.9-5) g/dL Crossmatch See Detail 12/23/18 Range/Units 05:27 RDW (13.2-15.2) % Lymph % (Auto) (13.4-35.0) % Seg Neutrophils % (40.0-70.0) % Seg Neutrophils # (1.8-7.7) K/mm3 BUN 4 L (7-17) mg/dL Creatinine 0.5 L (0.7-1.2) mg/dL Calcium 8.2 L (8.4-10.2) mg/dL Alkaline Phosphatase 146 H (35-129) units/L Total Protein 5.4 L (6.3-8.2) g/dL Albumin 2.7 L (3.9-5) g/dL Crossmatch
[2018-12-23] MEDS: FEOSOL PO SCH (09:58)
[2018-12-23] MEDS: PRENATAL VITAMIN PO SCH (09:59)
--- NOTE | 2018-12-23 11:15 | Consultation ---
History of Present Illness Consult date: 12/23/18 Requesting physician: TIFFANY SANDS Consult reason: bradycardia History of present illness: The patient has no prior history of cardiac disease. She underwent CS yesterday and was noted to be bradycardic thereafter as determined by pulse oximetry. Her heart rate had dropped into the 40s and 50s. yesterday afternoon and at about midnight. She denies chest pain, dyspnea, palpitations or dizziness. ECG revealed SR with frequent PVCs. Past History Past Medical History: No medical history Past Surgical History: Social history: . denies: smoking, alcohol abuse Family history: no significant family history Medications and Allergies Allergies Allergy/AdvReac Type Severity Reaction Status Date / Time No Known Allergies Allergy Unverified 09/23/14 13:18 Home Medications Medication Instructions Recorded Confirmed Last Taken Type Ferrous Sulfate 325 mg PO TID 12/22/18 12/22/18 Unknown History Ibuprofen [Motrin] 600 mg PO Q8H PRN #30 tablet 12/22/18 Unknown Rx Vit,Calc76/Iron/Folic 1 tab PO DAILY 12/22/18 12/22/18 Unknown History [Pnv 29-1 Tablet] oxyCODONE /ACETAMINOPHEN [Percocet 1 tab PO Q6HR PRN #30 tablet 12/22/18 Unknown Rx 5/325] Active Meds: Active Medications Acetaminophen (Tylenol) 650 mg AR Q4H PRN PRN Reason: Fever >100.5/MOMIN Acetaminophen/Hydrocodone Bitart ([place] 5/325) 1 each PO Q6H PRN PRN Reason: Pain, Moderate (4-6) Last Admin: 12/23/18 09:00 Dose: 1 each Documented by: Butorphanol Tartrate (Stadol) 2 mg IV Q1H PRN PRN Reason: Labor Pain Last Admin: 12/22/18 10:26 Dose: 2 mg Documented by: Ferrous Sulfate (Feosol) 325 mg PO QDAY ISIDOOR Last Admin: 12/23/18 09:58 Dose: 325 mg Documented by: Hydrocortisone Acetate (Anucort-Hc) 25 mg AR BID PRN PRN Reason: Hemorrhoids Oxytocin/Sodium Chloride (Pitocin/Ns 20 Unit/1000ml Drip) 20 units in 1,000 mls @ 0 mls/hr IV TITR ISIDORO Dextrose/Lactated Ringer's (D5lr) 1,000 mls @ 125 mls/hr IV DIRECT [facility] Last Admin: 12/22/18 20:52 Dose: 125 mls/hr Documented by: Oxytocin/Sodium Chloride (Pitocin/Ns 20 Unit/1000ml Drip) 20 units in 1,000 mls @ 250 mls/hr IV DIRECT ISIDORO Last Admin: 12/22/18 14:40 Dose: 250 mls/hr Documented by: Ibuprofen (Motrin) 800 mg PO Q6H PRN PRN Reason: Pain, Mild (1-3) Ketorolac Tromethamine (Toradol) 30 mg IV Q6H PRN PRN Reason: Pain, Moderate (4-6) Stop: 12/27/18 13:00 Last Admin: 12/23/18 02:39 Dose: 30 mg Documented by: Magnesium Hydroxide (Milk Of Magnesia) 30 ml PO QHS PRN PRN Reason: Constip Unrelieved By Senna Morphine Sulfate (Morphine) 4 mg IV Q4H PRN PRN Reason: Pain , Severe (7-10) Last Admin: 12/22/18 15:21 Dose: 4 mg Documented by: Multi-Ingredient Ointment (Lansinoh) 1 applic TP PRN PRN PRN Reason: dryness/cracking Multivitamins/Iron/Calcium ( Vitamin) 1 each PO QDAY [facility] Last Admin: 12/23/18 09:59 Dose: 1 each Documented by: Naloxone HCl (Narcan 0.4 Mg/1 Ml) 0.2 mg IV Q2MIN PRN PRN Reason: Res Rate </= 8 or 02 SAT < 92% Naloxone HCl (Narcan 0.4 Mg/1 Ml) 0.1 mg IV Q2MIN PRN PRN Reason: Res Rate </= 8 or 02 SAT < 92% Ondansetron HCl (Zofran) 4 mg IV Q8H PRN PRN Reason: Nausea And Vomiting Oxycodone/Acetaminophen (Percocet 5/325) 2 tab PO Q6H PRN PRN Reason: Pain, Moderate (4-6) Promethazine HCl (Phenergan) 25 mg PO Q6H PRN PRN Reason: Nausea And Vomiting Promethazine HCl (Phenergan) 25 mg AR Q6H PRN PRN Reason: Nausea And Vomiting Promethazine HCl (Phenergan) 25 mg AR Q6H PRN PRN Reason: N/V IF NPO AND NO IV ACCESS Senna (Senokot) 17.2 mg PO QHS PRN PRN Reason: Constipation Simethicone (Mylicon) 80 mg PO Q6H PRN PRN Reason: Gas pain Sodium Chloride (Sodium Chloride Flush Syringe 10 Ml) 10 ml IV PRN PRN PRN Reason: flush Sodium Chloride (Sodium Chloride Flush Syringe 10 Ml) 10 ml IV PRN NR Stop: 12/23/18 13:59 Witch Lindsay/Glycerin (Tucks Pad) 1 each TP PRN PRN PRN Reason: Hemorrhoids/cleansing/soothing Review of Systems Constitutional: no fever, no chills Ears, nose, mouth and throat: no ear pain, no ear discharge, no sore throat Cardiovascular: no chest pain, no palpitations, no lightheadedness, no shortness of breath Respiratory: no cough, no hemoptysis, no shortness of breath Gastrointestinal: no abdominal pain, no nausea, no vomiting, no diarrhea, no constipation Genitourinary Female: no dysuria, no urinary frequency Rectal: no pain, no bleeding Musculoskeletal: no neck stiffness, no neck pain, no myalgias Integumentary: no rash, no pruritis Neurological: no weakness, no parathesias, no headaches Endocrine: no cold intolerance, no heat intolerance Hematologic/Lymphatic: no easy bruising, no easy bleeding Allergic/Immunologic: no urticaria, no wheezing Physical Examination Vital Signs Last Vital Signs Temp 98.6 F 12/23/18 08:07 Pulse 67 12/23/18 08:07 Resp 18 12/23/18 08:07 BP 95/47 12/23/18 08:07 Pulse Ox 97 12/23/18 10:00 General appearance: no acute distress HEENT: Positive: EOMI, Normocephaly, Mucus Membranes Moist Neck: Positive: neck supple, trachea midline Cardiac: Positive: Reg Rate and Rhythm, S1/S2 Lungs: Positive: clear to auscultation Neuro: Positive: Grossly Intact Abdomen: Positive: Soft, Active Bowel Sounds. Negative: Tender Skin: Positive: Clear. Negative: Rash Musculoskeletal: Normal Range of Motion Extremities: Present: normal. Absent: edema Results 12/23/18 00:57 12/23/18 05:27 Cardiac Enzymes 12/23/18 Range/Units 05:27 AST 17 (5-40) units/L CBC 12/22/18 12/23/18 Range/Units 16:25 00:57 WBC 10.5 (4.5-11.0) K/mm3 RBC 3.98 (3.65-5.03) M/mm3 Hgb 12.0 10.8 (10.1-14.3) gm/dl Hct 36.2 33.0 (30.3-42.9) % Plt Count 144 (140-440) K/mm3 Lymph # 1.2 (1.2-5.4) K/mm3 [place] # 0.3 (0.0-0.8) K/mm3 Eos # 0.0 (0.0-0.4) K/mm3 Baso # 0.0 (0.0-0.1) K/mm3 Comprehensive Metabolic Panel 12/23/18 Range/Units 05:27 Sodium 139 (137-145) mmol/L Potassium 3.9 (3.6-5.0) mmol/L Chloride 104.2 (98-107) mmol/L Carbon Dioxide 23 (22-30) mmol/L BUN 4 L (7-17) mg/dL Creatinine 0.5 L (0.7-1.2) mg/dL Glucose 69 (65-100) mg/dL Calcium 8.2 L (8.4-10.2) mg/dL AST 17 (5-40) units/L ALT 8 (7-56) units/L Alkaline Phosphatase 146 H (35-129) units/L Total Protein 5.4 L (6.3-8.2) g/dL Albumin 2.7 L (3.9-5) g/dL - Imaging and Cardiology EKG: image reviewed EKG interpretations - Telemetry EKG Rhythm: Sinus Rhythm - EKG Sinus rhythms and dysrhythmias: sinus rhythm Ventricular dysrhythmias: ventricular premature com Assessment and Plan It is possible that due to frequent PVCs, the pulse ox monitor may not be counting the heart rate accurately. Analgesics may also enhance her vagal tone to some extent. Obtain magnesium level, TFTs and echocardiogram. If all are OK, she will undergo 24 hr holter monitor at our office as outpatient. - Patient Problems (1) Frequent PVCs Current Visit: Yes Status: Acute (2) Bradycardia Current Visit: Yes Status: Acute (3) delivery delivered Current Visit: Yes Status: Acute
[2018-12-23] MEDS: PERCOCET 5/325 PO PRN ×2 (13:59→22:47)
[2018-12-23] MEDS ORDERED: MAGNESIUM SULFATE IV ONE (16:25)
--- NOTE | 2018-12-23 16:28 | Consultation ---
History of Present Illness - Reason for Consult Consult date: 12/23/18 Bradycardia - History of Present Illness patient is a23 year old female with no personal or family history of cardiac disease who underwent successful with delivery of beautiful baby girl and was noted to have bradycardia after the procedure with heart rates going down to the 40s. We'll consulted to assist with this management. Patient denies any chest pain nausea vomiting diarrhea denies any known history of cardiac arrhythmias. She denies any current or prior tobacco use. Past History Past Medical History: No medical history, other ( day 2) Past Surgical History: Social history: . denies: smoking, alcohol abuse Family history: no significant family history Medications and Allergies Allergies Allergy/AdvReac Type Severity Reaction Status Date / Time No Known Allergies Allergy Unverified 09/23/14 13:18 Home Medications Medication Instructions Recorded Confirmed Last Taken Type Ferrous Sulfate 325 mg PO TID 12/22/18 12/22/18 Unknown History Ibuprofen [Motrin] 600 mg PO Q8H PRN #30 tablet 12/22/18 Unknown Rx Vit,Calc76/Iron/Folic 1 tab PO DAILY 12/22/18 12/22/18 Unknown History [Pnv 29-1 Tablet] oxyCODONE /ACETAMINOPHEN [Percocet 1 tab PO Q6HR PRN #30 tablet 12/22/18 Unknown Rx 5/325] Active Meds: Active Medications Acetaminophen (Tylenol) 650 mg MT Q4H PRN PRN Reason: Fever >100.5/MOMIN Acetaminophen/Hydrocodone Bitart ([place] 5/325) 1 each PO Q6H PRN PRN Reason: Pain, Moderate (4-6) Last Admin: 12/23/18 09:00 Dose: 1 each Documented by: Butorphanol Tartrate (Stadol) 2 mg IV Q1H PRN PRN Reason: Labor Pain Last Admin: 12/22/18 10:26 Dose: 2 mg Documented by: Ferrous Sulfate (Feosol) 325 mg PO QDAY ISIDORO Last Admin: 12/23/18 09:58 Dose: 325 mg Documented by: Hydrocortisone Acetate (Anucort-Hc) 25 mg MT BID PRN PRN Reason: Hemorrhoids Oxytocin/Sodium Chloride (Pitocin/Ns 20 Unit/1000ml Drip) 20 units in 1,000 mls @ 0 mls/hr IV TITR ISID[facility]O Dextrose/Lactated Ringer's (D5lr) 1,000 mls @ 125 mls/hr IV DIRECT [facility] Last Admin: 12/22/18 20:52 Dose: 125 mls/hr Documented by: Oxytocin/Sodium Chloride (Pitocin/Ns 20 Unit/1000ml Drip) 20 units in 1,000 mls @ 250 mls/hr IV DIRECT [facility]ID[facility]O Last Admin: 12/22/18 14:40 Dose: 250 mls/hr Documented by: Ibuprofen (Motrin) 800 mg PO Q6H PRN PRN Reason: Pain, Mild (1-3) Ketorolac Tromethamine (Toradol) 30 mg IV Q6H PRN PRN Reason: Pain, Moderate (4-6) Stop: 12/27/18 13:00 Last Admin: 12/23/18 02:39 Dose: 30 mg Documented by: Magnesium Hydroxide (Milk Of Magnesia) 30 ml PO QHS PRN PRN Reason: Constip Unrelieved By Senna Morphine Sulfate (Morphine) 4 mg IV Q4H PRN PRN Reason: Pain , Severe (7-10) Last Admin: 12/22/18 15:21 Dose: 4 mg Documented by: Multi-Ingredient Ointment (Lansinoh) 1 applic TP PRN PRN PRN Reason: dryness/cracking Multivitamins/Iron/Calcium ( Vitamin) 1 each PO QDAY [facility] Last Admin: 12/23/18 09:59 Dose: 1 each Documented by: Naloxone HCl (Narcan 0.4 Mg/1 Ml) 0.2 mg IV Q2MIN PRN PRN Reason: Res Rate </= 8 or 02 SAT < 92% Naloxone HCl (Narcan 0.4 Mg/1 Ml) 0.1 mg IV Q2MIN PRN PRN Reason: Res Rate </= 8 or 02 SAT < 92% Ondansetron HCl (Zofran) 4 mg IV Q8H PRN PRN Reason: Nausea And Vomiting Oxycodone/Acetaminophen (Percocet 5/325) 2 tab PO Q6H PRN PRN Reason: Pain, Moderate (4-6) Last Admin: 12/23/18 13:59 Dose: 2 tab Documented by: Promethazine HCl (Phenergan) 25 mg PO Q6H PRN PRN Reason: Nausea And Vomiting Promethazine HCl (Phenergan) 25 mg MT Q6H PRN PRN Reason: Nausea And Vomiting Promethazine HCl (Phenergan) 25 mg MT Q6H PRN PRN Reason: N/V IF NPO AND NO IV ACCESS Senna (Senokot) 17.2 mg PO QHS PRN PRN Reason: Constipation Simethicone (Mylicon) 80 mg PO Q6H PRN PRN Reason: Gas pain Sodium Chloride (Sodium Chloride Flush Syringe 10 Ml) 10 ml IV PRN PRN PRN Reason: flush Witch Lindsay/Glycerin (Tucks Pad) 1 each TP PRN PRN PRN Reason: Hemorrhoids/cleansing/soothing Review of Systems All systems: negative Constitutional: no weight loss, no weight gain, no fever, no chills, no weakness, no lethargy Cardiovascular: no chest pain, no orthopnea, no palpitations, no edema, no syncope, no lightheadedness, no shortness of breath Respiratory: no cough with sputum, no hemoptysis, no shortness of breath, no congestion, no wheezing, no pleurisy, no sleep apnea, no respiratory infections Gastrointestinal: no vomiting, no diarrhea, no change in bowel habits, no melena, no loss of appetite, no indigestion, no jaundice Musculoskeletal: no shooting leg pain, no hot joints, no muscle weakness Integumentary: no rash, no sores, no jaundice Exam - Physical Exam Narrative exam: VITAL SIGNS: Reviewed. GENERAL: The patient appeared well nourished and normally developed, Vital signs as documented. HEAD: No signs of head trauma. EYES: Pupils are equal. Extraocular motions intact. EARS: Hearing grossly intact. MOUTH: Oropharynx is normal. NECK: No adenopathy, no JVD. CHEST: Chest with clear breath sounds bilaterally. No wheezes, rales, or rhonchi. CARDIAC: Regular rate and rhythm. S1 and S2, without murmurs, gallops, or rubs. VASCULAR: No Edema. Peripheral pulses normal and equal in all extremities. ABDOMEN: Soft, tender in the suprapubic area site of surgery non tender and non distended. No rebound or guarding, and no masses palpated. Bowel Sounds normal. MUSCULOSKELETAL: Good range of motion of all major joints. Extremities without clubbing, cyanosis or edema. NEUROLOGIC EXAM: Alert and oriented x 3 No focal sensory or strength deficits. Speech normal. Follows commands. PSYCHIATRIC: Mood normal. SKIN: No rash or lesions. - Constitutional Vitals: Temp Pulse Resp BP Pulse Ox 98.6 F 67 18 95/47 99 12/23/18 08:07 12/23/18 08:07 12/23/18 08:07 12/23/18 08:07 12/23/18 14:00 Results - Labs CBC & Chem 7: 12/23/18 00:57 12/23/18 05:27 Labs: Abnormal lab results 12/22/18 12/23/18 12/23/18 Range/Units 16:25 05:27 12:25 RDW 18.0 H (13.2-15.2) % Lymph % (Auto) 11.1 L (13.4-35.0) % Seg Neutrophils % 85.4 H (40.0-70.0) % Seg Neutrophils # 8.9 H (1.8-7.7) K/mm3 BUN 4 L (7-17) mg/dL Creatinine 0.5 L (0.7-1.2) mg/dL Calcium 8.2 L (8.4-10.2) mg/dL Magnesium 1.50 L (1.7-2.3) mg/dL Alkaline Phosphatase 146 H (35-129) units/L Total Protein 5.4 L (6.3-8.2) g/dL Albumin 2.7 L (3.9-5) g/dL - Imaging and Cardiology EKG: report reviewed (PVCs) Assessment and Plan patient is a female with no personal or family history of cardiac disease who underwent successful with delivery of beautiful baby girl and was noted to have bradycardia after the procedure with heart rates going down to the 40s. We'll consulted to assist with this management. Patient denies any chest pain nausea vomiting diarrhea denies any known history of cardiac arrhythmias. She denies any current or prior tobacco use. EKG : revealed SR with frequent PVCs. Asymptomatic Bradycardia with occassional PVC Hypomagenesemia: Replace. * ECHO * Cardiology eval here or outpatient * check electrolytes and Thyroid * Will follow with you and treat based on findings * Thank you for allowing us take part in the care of your patient * Plan explained to the patient with nurse present
[2018-12-23] MEDS ORDERED: MAGNESIUM SULFATE 1 GM in NACL 0.9% 50 ML IV ONE (17:00)
[2018-12-23 19:29] LABS: Free T4 (Free Thyroxine) 1.18 ng/dL (0.76-1.46)
[2018-12-23] MEDS ORDERED: MAGNESIUM SULFATE 40GM/1000ML 0 GM/0 ML BAG IV ONE (21:47)
[2018-12-23] MEDS: D5LR 1,000 ML IV SCH (23:50)
[2018-12-24] MEDS: PERCOCET 5/325 PO PRN ×2 (06:37→17:54)
[2018-12-24] MEDS ORDERED: MAGNESIUM SULFATE IV ONE (10:16)
[2018-12-24] MEDS: FEOSOL PO SCH (10:49)
[2018-12-24] MEDS: PRENATAL VITAMIN PO SCH (10:49)
--- NOTE | 2018-12-24 11:44 | Progress Note ---
Assessment and Plan Patient is a female with no personal or family history of cardiac disease who underwent successful with livebirth and was noted to have bradycardia after the procedure with heart rates going down to the 40s. EKG : revealed SR with frequent PVCs. 2d echo: preserved EF Asymptomatic Bradycardia with occassional PVC, resolved Hypomagenesemia: Replaced. * ECHO showed preserved EF * s/p Cardiology eval, cleared to DC from cardiac standpoint. Will F/u at cardiology office in 2-3 weeks. Need 24 hr holter outpt. * normal Thyroid, cont to replete mg Subjective Date of service: 12/24/18 Principal diagnosis: repeat csec Interval history: No acute issue O/N, planned for d/c today Objective - Exam Narrative Exam: GENERAL: The patient appeared well nourished and normally developed, Vital signs as documented. HEAD: No signs of head trauma. EYES: Pupils are equal. Extraocular motions intact. EARS: Hearing grossly intact. MOUTH: Oropharynx is normal. NECK: No adenopathy, no JVD. CHEST: Chest with clear breath sounds bilaterally. No wheezes, rales, or rhonchi. CARDIAC: Regular rate and rhythm. S1 and S2, without murmurs, gallops, or rubs. VASCULAR: No Edema. Peripheral pulses normal and equal in all extremities. ABDOMEN: Soft and Bowel Sounds normal. MUSCULOSKELETAL: Good range of motion of all major joints. Extremities without clubbing, cyanosis or edema. NEUROLOGIC EXAM: Alert and oriented x 3 , Follows commands. PSYCHIATRIC: Mood normal. SKIN: No rash or lesions. - Constitutional Vitals: Vital Signs - 12hr 12/23/18 12/23/18 12/24/18 23:45 23:47 00:00 Temperature 98.5 F 98.0 F Pulse Rate 64 Respiratory 18 18 Rate Blood Pressure 94/49 [Right] 12/24/18 06:37 Temperature Pulse Rate Respiratory 20 Rate Blood Pressure [Right] - Labs CBC & Chem 7: 12/23/18 00:57 12/23/18 05:27 Labs: Abnormal lab results 12/23/18 12/23/18 Range/Units 12:25 18:37 Magnesium 1.50 L 1.60 L (1.7-2.3) mg/dL
[2018-12-24] MEDS ORDERED: MAGNESIUM SULFATE 2GM/50ML 2 GM/50 ML BAG IV ONE (12:00)
--- NOTE | 2018-12-24 13:20 | Progress Note ---
Assessment and Plan - Patient Problems (1) delivery delivered Current Visit: Yes Status: Acute Plan to address problem: routine postop care consider discharge home tomorrow if patient remains clinically stable Subjective - Subjective Date of service: 12/24/18 Principal diagnosis: repeat csec Interval history: Patient without any significant complaints. Tolerating diet. Pain is better controlled. Patient has remained normotensive without further bradycardic episodes. Patient reports: appetite normal, voiding normally, pain well controlled : doing well Objective - Vital Signs Latest vital signs: Vital Signs Temp Pulse Resp BP BP Pulse Ox 12/24/18 06:37 20 12/24/18 00:00 98.0 F 12/23/18 23:47 18 12/23/18 23:45 98.5 F 64 18 94/49 12/23/18 23:30 62 20 96/48 12/23/18 23:15 98.5 F 60 18 95/47 12/23/18 23:00 64 20 99/48 12/23/18 22:47 16 12/23/18 22:45 98.4 F 62 18 99/48 12/23/18 16:37 98.3 F 78 18 103/79 99 12/23/18 14:00 99 Intake and Output 12/23/18 12/24/18 12/24/18 22:59 06:59 14:59 Intake Total 840 Output Total 900 Balance -60 Intake: Oral 600 Intake, Free Water 240 Output: Urine 900 Void 900 Other: Total, Intake Amount 600 Total, Output Amount 900 # Voids Void 2 - Exam Abdomen: Present: normal appearance Uterus: Present: normal - Labs Labs: Abnormal lab results 12/23/18 Range/Units 18:37 Magnesium 1.60 L (1.7-2.3) mg/dL
--- NOTE | 2018-12-24 14:23 | Progress Note ---
Assessment and Plan OK to DC from cardiac standpoint. F/u at my office in 2-3 weeks. Will arrange 24 hr holter then. - Patient Problems (1) Frequent PVCs Current Visit: Yes Status: Acute (2) Bradycardia Current Visit: Yes Status: Acute (3) delivery delivered Current Visit: Yes Status: Acute Subjective Date of service: 12/24/18 Principal diagnosis: Frequent PVCs, Bradycardia, s/p CS Interval history: No complaint. Echo discussed with the patient. Objective Vital Signs Temp Pulse Resp BP BP Pulse Ox 12/24/18 06:37 20 12/24/18 00:00 98.0 F 12/23/18 23:47 18 12/23/18 23:45 98.5 F 64 18 94/49 12/23/18 23:30 62 20 96/48 12/23/18 23:15 98.5 F 60 18 95/47 12/23/18 23:00 64 20 99/48 12/23/18 22:47 16 12/23/18 22:45 98.4 F 62 18 99/48 12/23/18 16:37 98.3 F 78 18 103/79 99 - Physical Examination General: No Apparent Distress HEENT: Positive: EOMI, Normocephaly, Mucus Membranes Moist Neck: Positive: neck supple, trachea midline Cardiac: Positive: Reg Rate and Rhythm, S1/S2 Lungs: Positive: clear to auscultation Neuro: Positive: Grossly Intact Abdomen: Positive: Soft, Active Bowel Sounds. Negative: Tender Skin: Positive: Clear. Negative: Rash Musculoskeletal: Normal Range of Motion Extremities: Present: normal. Absent: edema - Imaging and Cardiology Echo: image reviewed - EKG Sinus rhythms and dysrhythmias: sinus rhythm Ventricular dysrhythmias: ventricular premature com
--- NOTE | 2018-12-24 19:55 | Discharge Summary ---
Providers - Providers Date of Admission: 12/22/18 08:44 Date of discharge: 12/24/18 Attending physician: TIFFANY SANDS MD 12/23/18 06:44 Consult to Physician [CONS] Routine Comment: irregular heartrate Consulting Provider: TIFFANY SANDS Physician Instructions: hospitalist consult Reason For Exam: borderline ECG 12/23/18 07:44 Consult to Physician [CONS] Routine Comment: Consulting Provider: BART NIEVES Physician Instructions: Reason For Exam: bradyarrythmia Primary care physician: TIFFANY SANDS MD Hospitalization Reason for admission: section Delivery: Procedure: section, repeat low transverse Discharge diagnosis: IUP at term delivered Hospital course: Patient admitted for a RLTCS. The surgery was complicated by a bradycardic episode involving the patient. The patient was evaluated by cardiology. The remainder of her postop visit was unremarkable. Condition at discharge: Good Disposition: DC-01 TO HOME OR SELFCARE - Discharge Diagnoses (1) delivery delivered Status: Acute Plan - Discharge Medications Prescriptions: Ibuprofen [Motrin] 600 mg PO Q8H PRN #30 tablet PRN Reason: Pain oxyCODONE /ACETAMINOPHEN [Percocet 5/325] 1 tab PO Q6HR PRN #30 tablet PRN Reason: Pain - Provider Discharge Summary Activity: no sex for 6 weeks, no heavy lifting 4 weeks, no strenuous exercise Diet: routine Instructions: routine Additional instructions: [] Smoking cessation referral if applicable(refer to patient education folder for contact #) [] Refer to [facility]'s [facility] Booklet Call your doctor immediately for: * Fever > 100.5 * Heavy vaginal bleeding ( >1 pad per hour) * Severe persistent headache * Shortness of breath * Reddened, hot, painful area to leg or breast * Drainage or odor from incision. * Keep incision clean and dry at all times and follow doctor's instructions regarding bathing/showering schedule followup in 2 weeks - Follow up plan
[2018-12-25 01:44] VITALS: BP 99/78
== END 2018-12-24 23:30 | disposition home or self-care (01) | DRG 766 ==
LOC: APU 08:44 → OB 15:11
PROVIDERS: ADMIT Obstetrics & Gynecology; ATTEND Obstetrics & Gynecology
PROC: 10D00Z1 Extraction of Products of Conception, Low, Open Approach (ICD-10-PCS; principal; 2018-12-22)
PROC: 3E0234Z Introduction of Serum, Toxoid and Vaccine into Muscle, Percutaneous Approach (ICD-10-PCS; 2018-12-23)
DX: O34.211 Maternal care for low transverse scar from previous cesarean delivery (principal); O99.89 Other specified diseases and conditions complicating pregnancy, childbirth and the puerperium; R00.1 Bradycardia, unspecified; I49.3 Ventricular premature depolarization; O99.334 Smoking (tobacco) complicating childbirth; F17.200 Nicotine dependence, unspecified, uncomplicated; O75.4 Other complications of obstetric surgery and procedures; O75.89 Other specified complications of labor and delivery; E83.42 Hypomagnesemia; O99.284 Endocrine, nutritional and metabolic diseases complicating childbirth; Z79.899 Other long term (current) drug therapy; Z3A.39 39 weeks gestation of pregnancy; Z37.0 Single live birth; Z23 Encounter for immunization
CPT/HCPCS: 36415; 80053; 83735; 84439; 84443; 85014; 85018; 85025; 86850; 86900; 86901; 86920; 93005; 93010; 93306; G0378; C1765; C9250; J0595; J1885; J2270; J2370; J2590; J2765; J3010; J3475; J7120; J7121

== ENCOUNTER 2020-04-15 00:30 | Emergency (ER) | payer MEDICAID ==
[2020-04-15] MEDS ORDERED: LIDOCAINE-MPF (1%) 10 MG/1 ML VIAL 5 ML INFILTRATI ONE (00:57)
[2020-04-15] MEDS ORDERED: ONDANSETRON 4 MG ODT TAB PO ONE (00:57)
[2020-04-15] MEDS ORDERED: IBUPROFEN 600 MG TAB PO ONE (00:57)
[2020-04-15] MEDS ORDERED: DIPHtheria,PERTUSSIS(ACELL),TETANUS VACCINE/PF 0.5 ML VIAL IM ONE (00:57)
[2020-04-15] MEDS ORDERED: HYDROcodone/ACETAMINOPHEN 7.5-325MG TAB PO ONE (00:57)
--- NOTE | 2020-04-15 01:39 | XRay Report ---
LEFT HAND 4 VIEWS INDICATION / CLINICAL INFORMATION: Caught in door with left hand pain. COMPARISON: None available. FINDINGS: BONES / JOINT(S): No acute fracture or subluxation. No significant arthritis. SOFT TISSUES: No significant abnormality. ADDITIONAL FINDINGS: None. Signer Name: Tani Leong MD Signed: 04/15/2020 1:35 AM Workstation Name: [id number]
--- NOTE | 2020-04-15 01:39 | XRay Report ---
LEFT WRIST 2 VIEWS INDICATION / CLINICAL INFORMATION: Injury with left wrist pain. COMPARISON: None available. 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 No significa nt arthritis. There is no evidence of fracture or dislocation. SOFT TISSUES: No significant abnormality. ADDITIONAL FINDINGS: None. Signer Name: Tani Leong MD Signed: 04/15/2020 1:34 AM Workstation Name: [id number]
--- NOTE | 2020-04-15 01:40 | XRay Report ---
RIGHT FOOT 3 VIEWS INDICATION / CLINICAL INFORMATION: Caught in door with right foot pain. COMPARISON: None available. FINDINGS: BONES / JOINT(S): No acute fracture or subluxation. No significant arthritis. SOFT TISSUES: There is localized soft tissue swelling involving the dorsum of foot with an overlying bandage noted. I do not identify a radiopaque foreign body. ADDITIONAL FINDINGS: None. Signer Name: Tani Leong MD Signed: 04/15/2020 1:36 AM Workstation Name: [id number]
--- NOTE | 2020-04-15 02:50 | Emergency Department Report ---
ED General Adult HPI - General Chief complaint: Wound/Laceration Stated complaint: DEEP LACERATION TO RIGHT FOOT Source: patient Mode of arrival: Wheelchair Limitations: No Limitations - History of Present Illness Initial comments: Patient is a 24-year-old -[place] female with a history of seizures and anxiety who presents to the ED with complaint of acute onset severe left hand and wrist pain dorsal right foot bleeding laceration after she tripped and fell down on the door hitting her left hand against the door frame about 2 hours ago. Patient states that she was trying to pick her child was running through the dog as well when she tripped and fell down. Patient states that the pain is worse with any active range of motion of both the right foot and the left hand and wrist. Patient states that she is not up-to-date with her tetanus vaccination. Patient denies head or neck injuries, dizziness, syncope, seizures, chest pain, shortness of breath, back pain, numbness and tingling of upper and lower extremities bilaterally. MD Complaint: left hand and wrist pain; right foot bleeding laceration -: Sudden, hour(s) (1) Location: upper extremity (left hand and wrist), lower extremity (right foot) Radiation: non-radiation Severity scale (0 -10): 10 Quality: aching, sharp Consistency: constant Improves with: none Worsens with: movement Associated Symptoms: denies other symptoms. denies: confusion, cough, diaphoresis, fever/chills, headaches, loss of appetite, malaise, nausea/vomiting, rash, seizure, shortness of breath, syncope, weakness Treatments Prior to Arrival: none - Related Data Home Medications Medication Instructions Recorded Confirmed Last Taken Ferrous Sulfate 325 mg PO TID 12/22/18 12/22/18 Unknown Vit,Calc76/Iron/Folic 1 tab PO DAILY 12/22/18 12/22/18 Unknown [Pnv 29-1 Tablet] Previous Rx's Medication Instructions Recorded Last Taken Type Ibuprofen [Motrin] 600 mg PO Q8H PRN #30 tablet 12/22/18 Unknown Rx oxyCODONE /ACETAMINOPHEN [Percocet 1 tab PO Q6HR PRN #30 tablet 12/22/18 Unknown Rx 5/325] Ibuprofen [Motrin] 600 mg PO Q8H PRN #30 tablet 04/15/20 Unknown Rx cephALEXin [Keflex] 500 mg PO Q8HR #30 capsule 04/15/20 Unknown Rx Allergies Allergy/AdvReac Type Severity Reaction Status Date / Time No Known Allergies Allergy Verified 04/15/20 00:35 ED Review of Systems ROS: Stated complaint: DEEP LACERATION TO RIGHT FOOT Other details as noted in HPI Constitutional: denies: chills, fever Eyes: denies: eye pain, eye discharge, vision change ENT: denies: ear pain, throat pain Respiratory: denies: cough, shortness of breath, wheezing Cardiovascular: denies: chest pain, palpitations Endocrine: no symptoms reported Gastrointestinal: denies: abdominal pain, nausea, diarrhea Genitourinary: denies: urgency, dysuria, discharge Musculoskeletal: arthralgia (right foot pain due to a bleeding laceration; left hand and wrist pain), myalgia. denies: back pain, joint swelling Skin: other (Bleeding dorsal right foot laceration with pain). denies: rash, lesions Neurological: denies: headache, weakness, paresthesias Psychiatric: anxiety. denies: depression Hematological/Lymphatic: denies: easy bleeding, easy bruising ED Past Medical Hx - Past Medical History Previous Medical History?: Yes Hx Hypertension: No Hx Heart Attack/AMI: No Hx Congestive Heart Failure: No Hx Diabetes: No Hx Deep Vein Thrombosis: No Hx Liver Disease: No Hx Renal Disease: No Hx Sickle Cell Disease: No Hx Seizures: Yes (2015) Hx Psychiatric Treatment: Yes (Anxiety) Hx Asthma: No Hx COPD: No Hx HIV: No - Surgical History Past Surgical History?: Yes Hx Pacemaker: No Hx Internal Defibrillator: No Additional Surgical History: c sect x2 - Social History Smoking Status: Never Smoker Substance Use Type: None - Medications Home Medications: Home Medications Medication Instructions Recorded Confirmed Last Taken Type Ferrous Sulfate 325 mg PO TID 12/22/18 12/22/18 Unknown History Ibuprofen [Motrin] 600 mg PO Q8H PRN #30 tablet 12/22/18 Unknown Rx Vit,Calc76/Iron/Folic 1 tab PO DAILY 12/22/18 12/22/18 Unknown History [Pnv 29-1 Tablet] oxyCODONE /ACETAMINOPHEN [Percocet 1 tab PO Q6HR PRN #30 tablet 12/22/18 Unknown Rx 5/325] Ibuprofen [Motrin] 600 mg PO Q8H PRN #30 tablet 04/15/20 Unknown Rx cephALEXin [Keflex] 500 mg PO Q8HR #30 capsule 04/15/20 Unknown Rx ED Physical Exam - General Limitations: No Limitations General appearance: alert, in no apparent distress - Head Head exam: Present: atraumatic, normocephalic, normal inspection - Eye Eye exam: Present: normal appearance, PERRL, EOMI Pupils: Present: normal accommodation - ENT ENT exam: Present: normal exam, normal orophraynx, mucous membranes moist, TM's normal bilaterally, normal external ear exam - Neck Neck exam: Present: normal inspection, full ROM. Absent: tenderness - Respiratory Respiratory exam: Present: normal lung sounds bilaterally. Absent: respiratory distress, wheezes, rales, rhonchi, chest wall tenderness, accessory muscle use, decreased breath sounds, prolonged expiratory - Cardiovascular Cardiovascular Exam: Present: normal rhythm, tachycardia, normal heart sounds. Absent: systolic murmur, diastolic murmur, rubs, gallop - GI/Abdominal GI/Abdominal exam: Present: soft, normal bowel sounds. Absent: tenderness, guarding, rebound, hyperactive bowel sounds, hypoactive bowel sounds, organomegaly - Extremities Exam Extremities exam: Present: normal inspection, full ROM, tenderness (Palpable left hand and wrist tenderness with limited range of motion due to pain), normal capillary refill, other (Palpable dorsal right foot tenderness due to bleeding 10 cm laceration.). Absent: pedal edema - Back Exam Back exam: Present: normal inspection, full ROM. Absent: tenderness, muscle spasm, paraspinal tenderness, vertebral tenderness - Neurological Exam Neurological exam: Present: alert, oriented X3, CN II-XII intact, normal gait, reflexes normal - Psychiatric Psychiatric exam: Present: normal affect, normal mood, anxious - Skin Skin exam: Present: warm, dry, intact, normal color, other (Bleeding dorsal right foot 10 cm laceration). Absent: rash ED Course Vital Signs 04/15/20 00:33 Temperature 98.1 F Pulse Rate 107 H Respiratory 18 Rate Blood Pressure 143/92 O2 Sat by Pulse 98 Oximetry - Laceration /Wound Repair Right Dorsal Foot Wound Location: lower extremity (dorsal right foot ) Wound Length (cm): 10 Wound's Depth, Shape: linear, irregular Wound Explored: contaminated Irrigated w/ Saline (ccs): 100 Betadine Prep?: Yes Anesthesia: 1% Lidocaine Volume Anesthetic (ccs): 10 Wound Debrided: extensive Wound Repaired With: sutures Suture Size/Type: 3:0, proline Number of Sutures: 19 Layer Closure?: No Sterile Dressing Applied?: Yes Progress: Patient tolerated the procedure well. Patient dorsal right foot sutured laceration was dressed appropriately after application of topical antibiotics bacitracin. Patient was discharged home on pain medications and prophylactic antibiotics and advised to follow-up with her primary care physician in 7 to 10 days for reevaluation or return to the ED immediately if symptoms get worse. Patient was otherwise advised to return to the ED or to her primary care physician in 12 to 14 days for suture removal. ED Medical Decision Making - Radiology Data Radiology results: report reviewed, image reviewed Findings [facility] [address] [place] [address] XRay Report Signed Patient: MUKUL FRANK MR#: [id number] : 1995 Acct:[id number] Age/Sex: 24 / F ADM Date: 04/15/20 Loc: ED Attending Dr: Ordering Physician: ALVARO OROPEZA MD Date of Service: 04/15/20 Procedure(s): XR foot 3+V RT Accession Number(s): [id number] cc: ALVARO OROPEZA MD Fluoro Time In Minutes: RIGHT FOOT 3 VIEWS INDICATION / CLINICAL INFORMATION: Caught in door with right foot pain. COMPARISON: None available. FINDINGS: BONES / JOINT(S): No acute fracture or subluxation. No significant arthritis. SOFT TISSUES: There is localized soft tissue swelling involving the dorsum of foot with an overlying bandage noted. I do not identify a radiopaque foreign body. ADDITIONAL FINDINGS: None. Signer Name: Tani Leong MD Signed: 04/15/2020 1:36 AM Workstation Name: [id number] Transcribed By: RT Dictated By: Tani Leong MD Electronically Authenticated By: Tani Leong MD Signed Date/Time: 04/15/20135 DD/ 4 TD/TT: Findings [address] [address] XRay Report Signed Patient: MUKUL FRANK MR#: [id number] : 1995 Acct:[id number] Age/Sex: 24 / F ADM Date: 04/15/20 Loc: ED Attending Dr: Ordering Physician: ALVARO OROPEZA MD Date of Service: 04/15/20 Procedure(s): XR hand 3+V LT Accession Number(s): [id number] cc: ALVARO OROPEZA MD Fluoro Time In Minutes: LEFT HAND 4 VIEWS INDICATION / CLINICAL INFORMATION: Caught in door with left hand pain. COMPARISON: None available. FINDINGS: BONES / JOINT(S): No acute fracture or subluxation. No significant arthritis. SOFT TISSUES: No significant abnormality. ADDITIONAL FINDINGS: None. Signer Name: Tani Leong MD Signed: 04/15/2020 1:35 AM Workstation Name: [id number] Transcribed By: RT Dictated By: Tani Leong MD Electronically Authenticated By: Tani Leong MD Signed Date/Time: 04/15/20134 DD/ 3 TD/TT: Findings [address] [address] XRay Report Signed Patient: MUKUL FRANK MR#: [id number] : 1995 Acct:[id number] Age/Sex: 24 / F ADM Date: 04/15/20 Loc: ED Attending Dr: Ordering Physician: CHARO JAY Date of Service: 04/15/20 Procedure(s): XR wrist 2V LT Accession Number(s): [id number] cc: CHARO JAY Fluoro Time In Minutes: LEFT WRIST 2 VIEWS INDICATION / CLINICAL INFORMATION: Injury with left wrist pain. COMPARISON: None available. 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 No significant arthritis. There is no evidence of fracture or dislocation. SOFT TISSUES: No significant abnormality. ADDITIONAL FINDINGS: None. Signer Name: Tani Leong MD Signed: 04/15/2020 1:34 AM Workstation Name: [id number] Transcribed By: RT Dictated By: Tani Leong MD Electronically Authenticated By: Tani Leong MD Signed Date/Time: 04/15/20133 DD/ 3 TD/TT: - Medical Decision Making This is a 24-year-old -[place] female with a history of seizures and anxiety who presents to the ED with complaint of acute onset severe left hand and wrist pain dorsal right foot bleeding laceration after she tripped and fell down on the door hitting her left hand against the door frame about 2 hours ago. Patient states that she was trying to pick her child was running through the dog as well when she tripped and fell down. Patient states that the pain is worse with any active range of motion of both the right foot and the left hand and wrist. Patient states that she is not up-to-date with her tetanus vaccination. In the ED, patient is alert and oriented x3 and is not in distress. Patient was treated for pain in the ED and also given booster tetanus vaccination. The left wrist x-ray shows no acute fractures or subluxation. The left hand x-ray also shows no acute fractures or subluxations. The right foot x-ray also shows no acute fractures or subluxations. The dorsal right foot bleeding laceration was cleaned thoroughly and sutured per protocol. Patient tolerated procedure well. Antibiotic ointment bacitracin was applied to the sutured wound and dressed appropriately. The left wrist and hand was splinted with Velcro splint. Patient tolerated the procedure well. Patient was discharged home on pain medication and prophylactic antibiotics and advised to follow-up with her primary care physician in 7 to 10 days for reevaluation or return to the ED immediately if symptoms get worse. Patient was otherwise advised to return to the ED or to her primary care physician in 12 to 14 days for suture removal. - Differential Diagnosis Foot fracture; wrist fracture; hand sprain; laceration Critical care attestation.: If time is entered above; I have spent that time in minutes in the direct care of this critically ill patient, excluding procedure time. ED Disposition Clinical Impression: Laceration of dorsum of right foot Sprain of left hand Qualifiers: Encounter type: initial encounter Qualified Code(s): S63.92XA - Sprain of unspecified part of left wrist and hand, initial encounter Sprain of left wrist Qualifiers: Encounter type: initial encounter Qualified Code(s): S63.502A - Unspecified sprain of left wrist, initial encounter Disposition: TO HOME OR SELFCARE Is pt being admited?: No Does the pt Need Aspirin: No Condition: Stable Instructions: Suture Care (ED), Laceration (ED), Hand Sprain (ED), Wrist Sprain (ED) Additional Instructions: All the x-rays of your left hand and wrist as well as the right foot are u nremarkable with no fractures or subluxations. Therefore take pain medications with food, drink plenty of fluids and follow-up with your primary care physician in 7 to 10 days for reevaluation. Return to the ED immediately if symptoms get worse. Otherwise return to the ED or to your primary care physician in 12 to 14 days for suture removal Prescriptions: cephALEXin [Keflex] 500 mg PO Q8HR #30 capsule Ibuprofen [Motrin] 600 mg PO Q8H PRN #30 tablet PRN Reason: Pain Referrals: [facility] [Provider Group] - 7-10 days Forms: Work/School Release Form(ED) Time of Disposition: 02:52 Print Language: LATVIAN
[2020-04-15 04:35] VITALS: BP 124/90
== END 2020-04-15 04:00 | disposition home or self-care (01) ==
LOC: ED 00:30
DX: S91.311A Laceration without foreign body, right foot, initial encounter (principal); S63.92XA Sprain of unspecified part of left wrist and hand, initial encounter; R56.9 Unspecified convulsions; F41.9 Anxiety disorder, unspecified; Z98.890 Other specified postprocedural states; Z79.1 Long term (current) use of non-steroidal anti-inflammatories (NSAID); Z79.899 Other long term (current) drug therapy; W01.118A Fall on same level from slipping, tripping and stumbling with subsequent striking against other sharp object, initial encounter; Y93.89 Activity, other specified; Y92.89 Other specified places as the place of occurrence of the external cause; Y99.8 Other external cause status
CPT/HCPCS: 90471; 90715; Q0162

== ENCOUNTER 2021-09-10 18:25 | Emergency (ER) | payer MEDICAID ==
[2021-09-10 18:37] VITALS: BP 114/73
[2021-09-10] MEDS ORDERED: TETANUS,DIPH,PERTUSS(ACELL) VACCINE 0.5 ML SYRINGE IM ONE (19:04)
[2021-09-10] MEDS ORDERED: ACETAMINOPHEN W/CODEINE 300-30 MG TAB PO ONE (19:04)
[2021-09-10] MEDS ORDERED: cephALEXin 500 MG CAP PO ONE (19:04)
--- NOTE | 2021-09-10 19:07 | Emergency Department Report ---
ED Fall HPI - General Chief Complaint: Extremity Injury, Lower Stated Complaint: FALL, KNEE INJURY Time Seen by Provider: 09/10/21 19:01 Source: patient Mode of arrival: Ambulatory - History of Present Illness Initial Comments: Patient presents from a fall. Several days ago she was running. She tripped and fell and sustained abrasions to the right leg. She is try to keep them clean but came in today because of increasing pain and redness. There is been no fever. She has no chest pain or shortness of breath. There is no back pain. She has no hip pain on the right. She states that the only pain she is having is around the abrasions in the right knee and right foot. Pain is constant and aching. - Related Data Home Medications Medication Instructions Recorded Confirmed Last Taken Ferrous Sulfate 325 mg PO TID 12/22/18 12/22/18 Unknown Vit,Calc76/Iron/Folic 1 tab PO DAILY 12/22/18 12/22/18 Unknown [Pnv 29-1 Tablet] Previous Rx's Medication Instructions Recorded Last Taken Type Ibuprofen [Motrin 600 MG tab] 600 mg PO Q8H PRN #30 tablet 09/10/21 Unknown Rx cephALEXin [Keflex] 500 mg PO Q8HR #30 capsule 09/10/21 Unknown Rx Allergies Allergy/AdvReac Type Severity Reaction Status Date / Time No Known Allergies Allergy Verified 04/15/20 00:35 ED Review of Systems ROS: Stated complaint: FALL, KNEE INJURY Other details as noted in HPI Comment: All other systems reviewed and negative Constitutional: denies: fever Eyes: denies: vision change ENT: denies: throat pain Respiratory: denies: cough Cardiovascular: denies: chest pain Endocrine: denies: unexplained weight loss Gastrointestinal: denies: abdominal pain Genitourinary: denies: dysuria Musculoskeletal: denies: back pain Skin: denies: rash Neurological: denies: headache Hematological/Lymphatic: denies: easy bruising ED Past Medical Hx - Past Medical History Hx Hypertension: No Hx Heart Attack/AMI: No Hx Congestive Heart Failure: No Hx Diabetes: No Hx Deep Vein Thrombosis: No Hx Liver Disease: No Hx Renal Disease: No Hx Sickle Cell Disease: No Hx Seizures: Yes (2015) Hx Psychiatric Treatment: Yes (Anxiety) Hx Asthma: No Hx COPD: No Hx HIV: No - Surgical History Hx Pacemaker: No Hx Internal Defibrillator: No Additional Surgical History: c sect x2 - Family History Family history: no significant - Social History Smoking Status: Never Smoker Substance Use Type: None - Medications Home Medications: Home Medications Medication Instructions Recorded Confirmed Last Taken Type Ferrous Sulfate 325 mg PO TID 12/22/18 12/22/18 Unknown History Vit,Calc76/Iron/Folic 1 tab PO DAILY 12/22/18 12/22/18 Unknown History [Pnv 29-1 Tablet] Ibuprofen [Motrin 600 MG tab] 600 mg PO Q8H PRN #30 tablet 09/10/21 Unknown Rx cephALEXin [Keflex] 500 mg PO Q8HR #30 capsule 09/10/21 Unknown Rx ED Physical Exam - General Limitations: No Limitations, Other (Pulse ox noted and normal) General appearance: alert, in no apparent distress - Head Head exam: Present: atraumatic, normocephalic, normal inspection - Eye Eye exam: Present: normal appearance, EOMI. Absent: scleral icterus - ENT ENT exam: Present: normal exam, normal orophraynx, normal external ear exam - Neck Neck exam: Present: normal inspection. Absent: meningismus - Respiratory Respiratory exam: Present: normal lung sounds bilaterally. Absent: respiratory distress - Cardiovascular Cardiovascular Exam: Present: regular rate, normal rhythm - GI/Abdominal GI/Abdominal exam: Present: soft. Absent: tenderness - Extremities Exam Extremities exam: Present: normal capillary refill, other (Multiple superficial abrasions to the medial aspect of the right foot and anterior aspect of the right knee that have surrounding erythema and warmth and purulent drainage) - Back Exam Back exam: Absent: CVA tenderness (R), CVA tenderness (L) - Neurological Exam Neurological exam: Present: alert, oriented X3, CN II-XII intact, abnormal gait (Antalgic), reflexes normal. Absent: motor sensory deficit - Psychiatric Psychiatric exam: Present: normal affect, normal mood - Skin Skin exam: Present: warm, dry ED Course Vital Signs 09/10/21 18:37 Temperature 98.1 F Pulse Rate 78 Respiratory 14 Rate Blood Pressure 114/73 [Right] O2 Sat by Pulse 100 Oximetry - Reevaluation(s) Reevaluation #1: 09/11/21 00:32 Patient was seen and discharged ED Medical Decision Making - Medical Decision Making Patient presents with wounds from a fall. These wounds have a secondary infection. There is no injury that would suggest acute fracture or dislocation. Patient does not have any evidence of abscess formation. There is no thoracoabdominal trauma. She was treated symptomatically and empirically with antibiotics. Critical Care Time: No Critical care attestation.: If time is entered above; I have spent that time in minutes in the direct care of this critically ill patient, excluding procedure time. ED Disposition Clinical Impression: Fall Qualifiers: Encounter type: initial encounter Qualified Code(s): W19.XXXA - Unspecified fall, initial encounter Abrasion of foot, right, infected Qualifiers: Encounter type: initial encounter Qualified Code(s): S90.811A - Abrasion, right foot, initial encounter Abrasion of knee, right, infected Qualifiers: Encounter type: initial encounter Qualified Code(s): S80.211A - Abrasion, right knee, initial encounter Disposition: HOME / SELF CARE / HOMELESS Is pt being admited?: No Condition: Stable Instructions: Abrasion, Wound Care, Adult Additional Instructions: Keep the abrasions clean. Use warm soapy water. Take all the antibiotics. Return for problems. Follow-up with your regular doctor for recheck. Prescriptions: cephALEXin [Keflex] 500 mg PO Q8HR #30 capsule Ibuprofen [Motrin 600 MG tab] 600 mg PO Q8H PRN #30 tablet PRN Reason: Pain Referrals: PRIMARY CARE, [Primary Care Provider] - 3-5 Days SIRI SERRANO MD [Staff Physician] - 3-5 Days Forms: Work/School Release Form(ED)
== END 2021-09-10 19:48 | disposition home or self-care (01) ==
LOC: ED 18:25
DX: S80.211A Abrasion, right knee, initial encounter (principal); S90.811A Abrasion, right foot, initial encounter; W01.0XXA Fall on same level from slipping, tripping and stumbling without subsequent striking against object, initial encounter; Y93.89 Activity, other specified; Y92.89 Other specified places as the place of occurrence of the external cause; Y99.8 Other external cause status
CPT/HCPCS: 90471; 90715